=== PATIENT | female | born 1960 | race Caucasian/White ===

== ENCOUNTER → 2019-09-08 11:01 | Outpatient (BNVA) | payer BC, SELFPAY | PROVIDERS: Family Provider Family Medicine; PCP Family Medicine; Visit Provider Orthopaedic Surgery | DX: M25.561 Pain in right knee (principal) | CPT/HCPCS: 73560; 73565 ==

== ENCOUNTER 2019-09-14 09:04 | Day surgery (SDC) | payer BC, SELFPAY ==
[2019-09-13 13:42] VITALS: BMI 39.4
[2019-09-14] VITALS (12 sets, daily range): BP systolic 128–160; BP diastolic 83–105; PULSE 57–74; RESP 12–22; TEMP 36.3–36.9; O2SAT 94–99
[2019-09-14] MEDS: sodium chloride 0.9% 1,000 ML 30 ML IV (09:47)
--- NOTE | 2019-09-14 09:54 | ANES.PREANE2 ---
Pre-Anesthetic Assessment Pre-Anesthetic Assessment: Height/Weight: Height 1.75 m Weight 121.109 kg Temp Pulse Resp Pulse Ox 97.4 F L 74 18 94 09/14/19 09:21 09/14/19 09:21 09/14/19 09:21 09/14/19 09:21 Preop Diagnosis: Right medial meniscal tear, osteoarthritis Proposed Procedure: Operation Date: 09/14/19 10:40 Proposed Procedures p Knee Arthroscopy medial meniscus repair vs meniscectomy 35442 [id number] S83.241A M17.11(Right) - Eddy Brambila MD Last intake: Intake Last Liquid Date 09/14/19 Last Liquid Time 00:00 Last Solid Date 09/14/19 Last Solid Time 00:00 Exam: Pre-Anes Outpt Exam: alert, oriented x 3, clear to auscultation bilaterally and regular rate & rhythm Airway: Submandibular: WNL Cervical ROM: WNL MP: 1 Dentition: Caps Metabolic: Metabolic: Morbid obesity Musc/skel: Musc/skel: Lower Back Pain Comments: intermittent right radiculopathy Anesthetic Plan: ASA status: II Anesthesia: General Meds/Allergies Current Medications: Current Medications Generic Name Dose Route Start Last Admin Trade Name Freq PRN Reason Stop Dose Admin Sodium Chloride 1,000 mls @ 30 ml s/hr 09/14/19 08:45 09/14/19 09:47 Sodium Chloride 0.9% IV 09/15/19 08:44 30 mls/hr .Q24H LINDA Administration PFSH Anesthesia PFSH: Social History Smoking and tobacco status: never smoked Alcohol intake: never Data Anesthesia Cardiac Studies: No Data to Display
--- NOTE | 2019-09-14 11:45 | PM.HPUD ---
H&P update H&P Update: DATE OF SURGERY/PROCEDURE: 09/14/19 DATE H&P PERFORMED: 09/08/19 H&P UPDATE INFORMATION: H&P completed within last 30 days and No changes to prior documentation PREOP DIAGNOSIS: Right medial meniscal tear, osteoarthritis PRIMARY INDICATION FOR PROCEDURE: Right medial meniscal tear PLANNED PROCEDURE: Operation Date: 09/14/19 10:40 Proposed Procedures p Knee Arthroscopy medial meniscus repair vs meniscectomy 57066 [id number] [id number] S83.241A M17.11(Right) - Eddy Brambila MD Full H&P Medications/Allergies: Current Medications: Current Medications Generic Name Dose Route Start Last Admin Trade Name Freq PRN Reason Stop Dose Admin Sodium Chloride 1,000 mls @ 30 ml s/hr 09/14/19 08:45 09/14/19 09:47 Sodium Chloride 0.9% IV 09/15/19 08:44 30 mls/hr .Q24H LINDA Administration Perinent History: Social History: Social History Smoking and tobacco status: never smoked Alcohol intake: never
[2019-09-14] MEDS: morphine 4 mg/mL SDV 1 mL 8 MG IM (12:15)
--- NOTE | 2019-09-14 13:38 | PM.OP ---
Operative Report Date of procedure: September 14, 2019 Pre-op Diagnosis: Right medial meniscal tear, osteoarthritis Post-op Diagnosis: Oblique tear right medial meniscus, chondromalacia right patella, chondromalacia medial femoral condyle Post-op Findings: The patient had oblique tear of his posterior third of his medial meniscus involving approximately the central 60% the tear was relatively dysvascular. Tissue quality did not allow for a satisfactory repair. She had generalized thinning of the cartilage beneath the patella and thinning and fissures centrally over the medial femoral condyle which were thought to extend through less than 50% of the thickness of the cartilage Procedure Done: Partial right medial Pathology: none sent Surgeon: Eddy Brambila Anesthesia: General Estimated blood loss (mL): 20 Complications: None Findings: Patient had an oblique tear in the posterior third of the medial meniscus involving approximately the central 60%. The tear was relatively dysvascular. Efforts at repair revealed fairly poor quality to the flap and meniscectomy was chosen as a better option Condition: stable Disposition: PACU Procedure: The patient was taken to the operating room and given 2 g of Ancef. She was given a general anesthesia. Her knee was infiltrated with 30 cc of 0.5% Marcaine with epinephrine and 10 mg of morphine. The leg was prepped and draped in the usual fashion and a timeout performed. The knee was initially entered through an anterior medial and anterior lateral portal. The medial meniscus oblique tear was carefully probed. Exposure in the far posterior medial corner is difficult. A spinal gauge was introduced medially and the meniscal femoral portion the medial Collateral ligament I trephinated with multiple puncture wounds allowing an additional few millimeters of exposure. A more lower medial portal was then made a scalpel blade to allow access to the posterior medial meniscus. The central areas were debrided and debridement was extended through the tear. Initially the tear was fairly large and tissue quality seemed reasonable to attempt repair. Multiple attempts were made with a palomino stitch to reapproximate the flap with poor quality tissue limiting the quality of the repair. Elzbieta stitch tissue was removed. An incisor shaver was introduced and the unstable flap was a debrided back leaving approximately 30% of the remaining posterior medial meniscus. The rim was cleaned up with a Santamaria [employer] Nephew Werewolf probe leaving a rim of approximately 30% of the meniscus behind. Areas and flaps and fissures over the medial femoral condyle were lightly debrided back with incisor shaver and Santamaria [employer] Nephew Werewolf probe under a low cautery mode. The lateral compartment was inspected and found to be healthy. There patellar cartilage within but no particular unstable flaps of fissures were seen that were benefit from debridement. The knee was irrigated with saline. Portals were closed with 3-0 Prolene. Sterile dressings were applied. The patient was extubated taken recovery room in stable condition.
--- NOTE | 2019-09-14 13:44 | SUR.PHASEI ---
1338- RECEIVED PATIENT IN PACU FROM OR VIA [facility]. RESP ARE EVEN AND NONLABORED. SIMPLE MASK APPLIED AT 6LPM, SAT 97%. SHE IS AWAKE AND ALERT, DROWSY. RLE IS WARM TO TOUCH WITH PPP. DRESSING DRY AND INTACT. NO S/S PAIN OR NAUSEA
[2019-09-14] MEDS: fentaNYL 50 mcg/mL INJ 2mL IVP ×2 (13:46→13:51)
[2019-09-14] MEDS: HYDROcodone-acetaminophen 5-325 mg Tablet 1 TAB PO (14:30)
== END 2019-09-14 15:12 | disposition home or self-care (01) ==
PROVIDERS: Family Provider Family Medicine; PCP Family Medicine; Visit Provider Orthopaedic Surgery
PROC: (CPT 29870; principal; 2019-09-14 10:40)
DX: S83.241A Other tear of medial meniscus, current injury, right knee, initial encounter (principal); X58.XXXA Exposure to other specified factors, initial encounter; M17.11 Unilateral primary osteoarthritis, right knee; M22.41 Chondromalacia patellae, right knee
CPT/HCPCS: 29881; 12345; J0690; J1100; J1885; J2001; J2270; J2405; J2704; J3010; J3490; J7030

== ENCOUNTER 2019-09-26 08:14 | Outpatient (CLI) | payer BC, SELFPAY ==
--- NOTE | 2019-09-26 08:21 | CT_ITS ---
WS: [id number] CT CERVICAL MYELOGRAM HISTORY: CERVICAL DISC DISORDER W/MYELOPATHY OF MID CERVICAL REGION Technique: All CT scans at [facility] use at least one of these dose optimization techniq ues: automated exposure control; mA and/or kV adjustment per patient size (includes targeted exams wh ere dose is matched to clinical indication); or iterative reconstruction. DLP: 698.62 mGy.cm COMPARISON: MRI C-spine 03/25/2019 Good opacification of thecal sac with contrast. Posterior cervical alignment is normal. Mild disc space narrowing at C5-6 and C6-7. Small endplate os teophytes from C4 through C6. CSF surrounds the cord. No cord atrophy or enlargement. C1-C2: Normal. C2-C3: Normal. C3-C4: Mild annular disc bulging with a tiny central protrusion and osteophytic ridging. Very slight encroachment upon the ventral thecal sac with no significant stenosis. C4-C5: Mild osteophytic ridging and annular disc bulging. No stenosis. C5-C6: Mild osteophytic ridging with a shallow LEFT paracentral disc protrusion. Very mild narrowing of the LEFT foramen. C6-C7: Moderate-sized LEFT paracentral and proximal foraminal disc protrusion and osteophyte. Deformi ty and flattening of the LEFT lateral thecal sac with encroachment into the LEFT foramen. C7-T1: Small RIGHT facet osteophyte with mild encroachment upon the RIGHT lateral and posterior theca l sac. No cord contact. CT/CT cervical spine w con [id number] IMPRESSION: 1. Mild narrowing of the proximal LEFT foramen at C6-7 due to disc osteophyte protrusion. 2. Small LEFT paracentral disc protrusion at C5-6 with mild foraminal narrowin g. 3. No significant central stenosis.
--- NOTE | 2019-09-26 08:21 | IR_ITS ---
WS: [id number] CERVICAL AND LUMBAR MYELOGRAM HISTORY: LOW BACK PAIN/CERVICAL DISC DISORDER W/MYELOPATHY OF CSPINE COMPARISON: MRI cervical spine 03/25/2019 FLUOROSCOPY TIME: 2.1 minutes. Procedure, risks and complications were explained to the patient. Risks including bleeding, infection , headaches, allergic reaction and seizures. Consent has been obtained. With the patient in prone position the skin over the lumbar region is cleansed with ChloraPrep and an esthetized with lidocaine. 22-gauge spinal needle is inserted into the thecal sac at the appropriate level determined by fluoroscopy. Omnipaque 300; 13 ml is injected slowly under fluoroscopy with no co mplications. Needle bevel is perpendicular to the longitudinal fibers of the dura. Stylet is reinsert ed prior to removal of the needle. Patient tolerated the procedure well. Patient will proceed to CT f or further evaluation. Posterior lumbar alignment is normal. Mild disc space narrowing. No fractures. Uncomplicated injectio n into the thecal sac. Normal cervical alignment. With flexion and extension there is no instability. No significant foramin al narrowing. IR/IR myelogram spine cervic/lumb IMPRESSION: 1. Uncomplicated cervical and lumbar myelograms. 2. No instability involving the cervical or lumbar spine. 3. No fractures.
--- NOTE | 2019-09-26 08:21 | CT_ITS ---
WS: [id number] CT MYELOGRAM LUMBAR SPINE HISTORY: LOW BACK PAIN TECHNIQUE: Contiguous 2.5 mm axial imaging performed from T12 through the mid sacral level. Bone and soft tissue windows reviewed. Sagittal and coronal reformats are submitted and reviewed. DLP: 2424.[address] scans at [facility] use at least one of these dose optimization techniques: automat ed exposure control; mA and/or kV adjustment per patient size (includes targeted exams where dose is matched to clinical indication); or iterative reconstruction. COMPARISON: None available. Good injection of the thecal sac with contrast. Posterior lumbar alignment is normal. Disc spaces and vertebral body heights are preserved. L1-L2: No central or foraminal stenosis. Mild facet arthropathy. L2-L3: Mild annular disc bulging. No stenosis. L3-L4: Mild annular disc bulging with no significant stenosis. L4-L5: Mild annular disc bulging. Mild facet and ligamentum flavum arthropathy. No stenosis. L5-S1: Mild annular disc bulging with a broad-based central and LEFT paracentral disc herniation. Lance y slight contact on the thecal sac and LEFT S1 nerve root. No significant stenosis. Scattered calcified plaque within the aorta and common iliac arteries. No aneurysm. Visualized SI whitley nts demonstrate mild degenerative changes. CT/CT lumbar spine w con [id number] IMPRESSION: 1. Uncomplicated lumbar myelogram. 2. Broad-based disc herniation at L5-S1 with mild contact on the LEFT S1 nerve root.
[2019-09-26] MEDS: iohexol 300 mg/mL 50 mL Btl IV (10:51)
== END 2019-09-26 08:15 | disposition home or self-care (01) ==
LOC: RAD 08:17
PROVIDERS: Family Provider Family Medicine; PCP Family Medicine; Visit Provider Specialist
DX: M50.020 Cervical disc disorder with myelopathy, mid-cervical region, unspecified level (principal); M51.27 Other intervertebral disc displacement, lumbosacral region; M50.222 Other cervical disc displacement at C5-C6 level
CPT/HCPCS: 36415; 62305; 72040; 72120; 72126; 72132; 85610

== ENCOUNTER 2020-04-14 12:03 | Emergency (ER) | payer BC, SELFPAY ==
--- NOTE | 2020-04-14 12:36 | ED_ITS ---
HPI - URI/Sore Throat General: Chief Complaint: Shortness of Breath/Dyspnea Stated Complaint: covid positive Time Seen by Provider: 04/14/20 12:06 Source: patient Mode of arrival: ambulatory Limitations: no limitations History of Present Illness: HPI Narrative: Patient is a 59-year-old female who presents to ED today along with her and several other family members all here for COVID evaluations. Patient tells me last week she had exposure to a COVID positive individual while in [place]. She states based on that exposure she decided to go ahead and get herself tested-reports testing came back positive. She states her at the time was also getting testing due to symptoms of shortness of breath. She states her 's test came back negative. She is convinced that the facility got our tests mixed up . Patient states since then she has developed some maxillary sinus pressure and a sore throat. She denies fevers, cough, shortness of breath, difficulty breathing or any other symptoms at this time. MD elicited complaint: sore throat, rhinorrhea, nasal congestion and sinus pain Severity: mild Description of mucous: clear Able to tolerate fluids by mouth: Yes Exacerbating factors: nothing Relieving factors: nothing Context: sick contacts Associated symptoms: Reports nasal congestion and sinus pain; Deny abdominal pain, chills, chest pain, diarrhea, ear or mastoid pain, fever(s), headache(s), nausea or vomiting Review of Systems Const: Denies: fever(s), chills, body aches, fatigue or malaise Eyes: Denies: change in vision, blurry vision, photophobia, floaters or seeing flashes ENMT: Reports: throat pain, odynophagia, nasal discharge, nasal congestion and sinus pain; Denies: enlarged tonsils, ear or mastoid pain, ear discharge, change in hearing or tinnitus Card: Denies: chest pain, palpitations, irregular heart rhythm, edema, swelling of feet/ankles, lightheadedness, syncope, pre-syncope, dyspnea on exertion, orthopnea or leg pain with exertion Resp: Denies: dyspnea, productive cough, non-productive cough, pain on inspiration, change in phlegm color or chest congestion GI: Denies: abdominal pain, nausea, vomiting or diarrhea Musc: Denies: neck pain, back pain, extremity pain, extremity swelling, joint pain or joint swelling Skin/Breast: Denies: rash Neuro: Denies: headache(s), numbness in extremities, weakness in extremities, sensory changes or dizziness PFSH ED PFSH: Social History Smoking and tobacco status: never smoked Alcohol intake: never Physical Exam Const: COMMON NORMALS: no acute distress, average body habitus, patient oriented x3, no limitations, healthy appearing, alert and well nourished ORIENTATION/CONSCIOUSNESS: Yes oriented to person, Yes oriented to place and Yes oriented to time HENMT: COMMON NORMALS: normocephalic, atraumatic, hearing grossly normal bilaterally, external ears normal, EAC's normal, TM's normal bilaterally, Normal external nose present, moist oral mucous membranes, oropharynx normal, dentition normal and gingiva normal HEAD & SCALP: normal to inspection, normocephalic and atraumatic FACE & SINUS: sinus tenderness maxillary NOSE: Normal external nose present EXTERNAL EAR: Yes external ears normal EXTERNAL AUDITORY CANAL: EAC's normal TYMPANIC MEMBRANE: TM's normal bilaterally MOUTH: Normal oral and palatal mucosa present THROAT: posterior oropharynx normal, tonsils normal and uvula midline Eye: GENERAL EYE: appearance normal, both eyes and all related structures Neck/C-Spine: COMMON NORMALS: full ROM, no lymphadenopathy and no meningeal signs Resp: COMMON NORMALS: normal respiratory effort and clear to auscultation bilaterally AUSCULTATION: clear to auscultation bilaterally Cardio: COMMON NORMALS: regular rate and regular rhythm RATE: regular rate RHYTHM: regular rhythm Extremity: GENERAL: Yes normal exam except as noted Neuro: COMMON NORMALS: patient oriented x3 SENSORIUM/ORIENTATION: Yes alert, Yes oriented to person, Yes oriented to place and Yes oriented to time MENINGEAL SIGNS: Yes no meningeal signs Skin: COMMON NORMALS: no rashes or lesions noted GENERAL SKIN EXAM: no rashes or lesions noted Course Vital Signs: Vital signs: Vital Signs Pulse Rate 77 04/14/20 12:40 Respiratory Rate 18 04/14/20 12:40 Blood Pressure 134/86 04/14/20 12:40 Pulse Oximetry 97 04/14/20 12:40 MDM - URI/Sore Throat MDM Narrative: Medical decision making narrative: Patient is requesting repeat COVID testing. Ultimately I explained to patient how this overall would be non- beneficial for her as it would not overall change my recommendations. She is already had a positive COVID test and based on the symptoms of her I would recommend quarantining regardless. She is adamant that we retest her therefore this was ordered. She is requesting shot of steroids as she feels this will help her symptoms. Discussed CDC guidelines for treatment of COVID. Again she is adamant that we try the steroids. Ultimately I do not feel this would harm patient in any way therefore she was given IM dexamethasone. There is absolutely no need for emergent imaging or labs on today's visit. She is clinically stable. Her vital signs are normal. Discharge Plan Discharge Patient Disposition: Home Clinical Impression: COVID-19 Condition: Stable Prescriptions: No Action multivitamin Capsule 1 cap PO QAM RF: 0 Discharge Orders: Discharge Order (Routine); Ordered 04/14/20 Ordered By: Ángela Mayer Referrals: Conor Rae MD [Primary Care Provider] - Activity Restrictions/Additional Instructions: As discussed please continue to quarantine over the next 10 days. You may return to the emergency department for severe shortness of breath or severe difficulty breathing. Coding Level of Care Code ED Finger Buff Sewer for Twan Mcpherson
[2020-04-14 12:40] VITALS: BP 134/86; PULSE 77; RESP 18; O2SAT 97; BMI 39.4
[2020-04-14] MEDS: dexamethasone 10 mg/mL INJ 8 MG IM (13:26)
[2020-04-14 13:49] VITALS: BP 159/110; PULSE 69; RESP 18; O2SAT 97
--- NOTE | 2020-04-14 13:50 | PC.NURSE ---
Patient refused for nurse to perform COVID 19 swab properly, swab not sent for testing
== END 2020-04-14 13:51 | disposition home or self-care (01) ==
PROVIDERS: Emergency Provider Physician Assistant; PCP Family Medicine
DX: U07.1 COVID-19 (principal)
CPT/HCPCS: 12345; 96372; 99281; 99283; J1100

== ENCOUNTER 2020-05-02 01:33 | Emergency (ER) | payer BC, SELFPAY ==
[2020-05-02 01:56] VITALS: RESP 18; TEMP 36.6; BMI 38.4
--- NOTE | 2020-05-02 01:59 | XRR_ITS ---
PROCEDURE INFORMATION: Exam: XR Chest, 1 View Exam date and time: 05/02/2020 2:26 AM Age: 59 years old Clinical indication: Cough TECHNIQUE: Imaging protocol: XR of the chest Views: 1 view. COMPARISON: CR Chest 1 [place] [id number] 08/09/2018 1:30 AM FINDINGS: Lungs: The right lung is clear. Mild atelectasis at the left lung base, similar to prior study. Pulmonary vasculature within normal limits. Pleural space: No visible pneumothorax or pleural effusion. Heart/Mediastinum: Heart size within normal limits. Thoracic aorta is tortuous, similar to prior study. Bones/joints: No emergent findings identified. XR/XR chest 1V portable [id number] IMPRESSION: 1. No radiographic findings of acute cardiopulmonary disease.
--- NOTE | 2020-05-02 02:00 | W.ED.URI ---
HPI - URI/Sore Throat General: Chief Complaint: Upper Respiratory Infection Stated Complaint: persistent sore throat Time Seen by Provider: 05/02/20 01:48 History of Present Illness: HPI Narrative: Patient is a 59-year-old female comes to the ED with persistent cough. Patient was diagnosed with COVID-19 on April 10 and has done her 14 days of quarantine. Patient says she still has cough, nasal congestion drainage, sore throat. Reductive and phlegm is described as yellow and clear. She says she uses an albuterol inhaler at home to help with any shortness of breath or wheezing. She denies having any fevers over the past 2 weeks plus. She currently is taking doxycycline and has a couple doses left. Associated symptoms: Reports nasal congestion; Deny abdominal pain, chills, chest pain, diarrhea, fever(s), headache(s), nausea or vomiting Review of Systems Const: Denies: fever(s), chills or fatigue Eyes: Denies: change in vision or eye discomfort ENMT: Reports: throat pain, nasal discharge and nasal congestion; Denies: odynophagia Card: Denies: chest pain, palpitations, edema, swelling of feet/ankles, dyspnea on exertion or orthopnea Resp: Reports: productive cough (Yellow and clear) and wheezing; Denies: dyspnea or non-productive cough GI: Denies: abdominal pain, nausea, vomiting, diarrhea, constipation or hematochezia : Denies: flank pain, dysuria or hematuria Musc: Denies: neck pain, back pain or extremity swelling Skin/Breast: Denies: rash or new lesions Neuro: Denies: headache(s), numbness in extremities or weakness in extremities PFS ED PFSH: Social History Smoking and tobacco status: never smoked Alcohol intake: never Physical Exam Const: COMMON NORMALS: no acute distress, patient oriented x3, healthy appearing and alert GENERAL APPEARANCE: cooperative and comfortable HENMT: COMMON NORMALS: normocephalic HEAD & SCALP: normocephalic MOUTH: Normal oral and palatal mucosa present THROAT: posterior oropharynx normal and uvula midline Eye: COMMON NORMALS: Equal, round and reactive pupils present PUPIL: Yes Equal, round and reactive pupils present Neck/C-Spine: COMMON NORMALS: supple GENERAL: Yes normal visual inspection Resp: COMMON NORMALS: normal respiratory effort, No retractions, No use of accessory muscles and clear to auscultation bilaterally EFFORT & INSPECTION: Yes able to speak in complete sentences, No tachypneic, No respiratory distress and Yes Actively coughing AUSCULTATION: clear to auscultation bilaterally and wheezes expiratory wheezes (mild expiratory wheeze) Cardio: COMMON NORMALS: regular rate, regular rhythm, S1 normal heart sound present, S2 normal heart sound present, No gallops present (Cardio), No clicks present (Cardio), No murmurs present (Cardio) and Peripheral pulses 2+ throughout RATE: regular rate RHYTHM: regular rhythm HEART SOUNDS: S1 normal heart sound present and S2 normal heart sound present PERIPHERAL PULSES: Peripheral pulses 2+ throughout GI: COMMON NORMALS: Normal to inspection, nondistended, normoactive bowel sounds present, Soft to palpation, non-tender and no masses PALPATION: Yes Soft to palpation : COMMON NORMALS: Yes no CVA tenderness BLADDER/KIDNEY EXAM: Yes no CVA tenderness Back/Pelvis: COMMON NORMALS: no CVA tenderness Extremity: COMMON NORMALS: normal to inspection Neuro: COMMON NORMALS: patient oriented x3 and moves all extremities SENSORIUM/ORIENTATION: Yes alert Skin: COMMON NORMALS: no rashes or lesions noted GENERAL SKIN EXAM: no rashes or lesions noted and dry skin Course Vital Signs: Vital signs: Vital Signs Temperature 97.8 F 05/02/20 01:56 Pulse Rate 86 05/02/20 02:21 Respiratory Rate 18 05/02/20 02:21 Blood Pressure 163/98 05/02/20 02:21 Pulse Oximetry 98 05/02/20 02:21 MDM - URI/Sore Throat MDM Narrative: Medical decision making narrative: Patient is a 59-year-old female who comes to the ED with persistent cough. She was diagnosed with COVID-19 on April 10. She appears healthy and does have some active coughing during exam. She has some mild expiratory wheezing in lungs but in no acute distress. Chest x-ray showed no acute infiltrates. Due to patient's persistent cough and other upper respiratory symptoms I decided to put her on a prescription for azithromycin and prednisone. Told patient to continue using albuterol inhaler at home to help with any wheezing. Return to ED precautions given. Follow-up with PCP in 7 to 10 days for reevaluation. Patient understood and agreed with plan. Imaging Data^: CXR: Attestation: I personally reviewed and interpreted this imaging study as follows: My impression: Chest x-ray showed no acute infiltrates or findings. Possible bronchitis seen. Pending final radiology report. Discharge Plan Discharge Patient Disposition: Home Clinical Impression: Upper respiratory infection with cough and congestion Condition: Stable Prescriptions: New azithromycin 250 mg tablet 250 mg PO DAILY 4 Days Qty: 4 RF: 0 prednisone 20 mg tablet 20 mg PO TID 5 Days Qty: 15 RF: 0 No Action multivitamin Capsule 1 cap PO QAM RF: 0 Discharge Orders: Discharge Order (Routine); Ordered 05/02/20 Ordered By: Ck Pearson Referrals: Conor Rae MD [Primary Care Provider] - Discharge Diet: Regular Discharge Activity: Increase activity as tolerated Patient Instructions: Upper Respiratory Infection - Adult Activity Restrictions/Additional Instructions: Follow-up with medical provider as directed in 7-10 days. Take medications as prescribed. Continue using at previously prescribed albuterol inhaler as needed for any shortness of breath or wheezing. Return to the ER or your medical provider if condition worsens. Please read and understand discharge instructions. If any questions, please ask. Discharge Date/Time: 05/02/20 02:53 Coding Level of Care Code ED Security Researcher for Twan Mcpherson Exam Comprehensive
[2020-05-02 02:21] VITALS: BP 163/98; PULSE 86; RESP 18; O2SAT 98
[2020-05-02] MEDS: predniSONE 20 mg Tablet 60 MG PO (02:33)
[2020-05-02] MEDS: azithromycin 250 mg Tablet 500 MG PO (02:33)
== END 2020-05-02 02:53 | disposition home or self-care (01) ==
PROVIDERS: Emergency Provider Physician Assistant; PCP Family Medicine
DX: U07.1 COVID-19 (principal)
CPT/HCPCS: 12345; 71045; 99281; 99283; J7512; Q0144

== ENCOUNTER → 2020-05-08 14:05 | Outpatient (BNVA) | payer BC, SELFPAY | PROVIDERS: PCP Family Medicine; Visit Provider Licensed Practical Nurse | DX: M50.020 Cervical disc disorder with myelopathy, mid-cervical region, unspecified level (principal); M51.17 Intervertebral disc disorders with radiculopathy, lumbosacral region | CPT/HCPCS: 99213 ==

== ENCOUNTER 2020-05-22 13:20 | Outpatient (CLI) | payer BC, SELFPAY ==
--- NOTE | 2020-05-22 13:00 | MR_ITS ---
WS: [id number] MRI CERVICAL SPINE NONCONTRAST TECHNIQUE: Sagittal T1, T2 and STIR imaging. Axial T2, gradient, and fiesta imaging. CLINICAL INFORMATION: M50.020 Cervical disc disorder with myelopathy, mid-cervi... COMPARISON: None. FINDINGS: Normal cervical alignment. No high-grade central canal stenosis. Mild disc bulging more prominent at C5-C6. C2-C3: Mild left bony foraminal narrowing. Spinal canal and right foramen are patent. Mild left facet arthropathy. C3-C4: Mild left and no significant right foraminal narrowing. Spinal canal is patent. Mild facet art hropathy. C4-C5: Mild osteophytic ridging. Mild left greater than right bony foraminal narrowing. Mild facet ar thropathy. Spinal canal is patent. C5-C6: Disc osteophyte complex eccentric to the left with moderate left foraminal narrowing. Right fo ramen is patent. Mild central canal stenosis. C6-C7: Disc osteophyte complex with endplate ridging. Moderate left and no significant right foramina l narrowing. Mild facet arthropathy. C7-T1: Mild left greater than right bony foraminal narrowing. Osteophytic ridging. Spinal canal is p atent. Visualized brain stem structures: Normal. Prevertebral soft tissues: Normal. MR/MR cervical spin wo con* [id number] IMPRESSION: 1. Straightening of the normal cervical lordosis. Cord signal is normal. 2. Shallow disc osteophyte protrusions C5-C6 and C6-C7 with mild central canal stenosis and slight effacement of ventral thecal sac. 3. Mild to moderate bony foraminal narrowing worse at left C3-C4, left C4-C5, left C5-C6 and left C6-C7.
--- NOTE | 2020-05-22 13:29 | XR_ITS ---
WS: [id number] CERVICAL SPINE FLEXION EXTENSION TECHNIQUE: 3 views of the cervical spine: lateral neutral, flexion and extension views. CLINICAL INFORMATION: CERVICAL DISORDER WITH MYELOPATHY COMPARISON: None. FINDINGS: Straightening of the normal cervical lordosis. Normal alignment on the neutral view. Mild spondylitic changes. Normal C1-C2 articulation. No instability on flexion-extension. Normal prevertebral soft ti ssues. Posterior elements are normal. No other significant findings. XR/XR cervical spine fl/ex [id number] IMPRESSION: No instability on flexion-extension.
== END 2020-05-22 13:21 | disposition home or self-care (01) ==
LOC: RADWPI 13:22
PROVIDERS: PCP Family Medicine; Visit Provider Licensed Practical Nurse
DX: M50.020 Cervical disc disorder with myelopathy, mid-cervical region, unspecified level (principal); M25.78 Osteophyte, vertebrae; M48.02 Spinal stenosis, cervical region
CPT/HCPCS: 72040; 72141

== ENCOUNTER → 2020-07-02 09:08 | Outpatient (BNVA) | payer BC, SELFPAY | PROVIDERS: PCP Family Medicine Adult Medicine; Referring Provider Licensed Practical Nurse; Visit Provider Specialist | DX: M50.020 Cervical disc disorder with myelopathy, mid-cervical region, unspecified level (principal); G56.02 Carpal tunnel syndrome, left upper limb | CPT/HCPCS: 95910; 99202 ==

== ENCOUNTER → 2020-11-15 08:32 | Outpatient (BNVA) | payer BC, OTHER, SELFPAY | PROVIDERS: PCP Family Medicine Adult Medicine; Visit Provider Family Medicine Adult Medicine | DX: R03.0 Elevated blood-pressure reading, without diagnosis of hypertension (principal); E66.9 Obesity, unspecified; G54.0 Brachial plexus disorders | CPT/HCPCS: 80053; 80061; 83036; 84443; 85025 ==

== ENCOUNTER 2021-03-06 08:00 | Outpatient (CLI) | payer OTHER, SELFPAY ==
--- NOTE | 2021-03-06 08:00 | US_ITS ---
WS: [id number] ULTRASOUND ABDOMEN LIMITED CLINICAL INFORMATION: left lower abdomen soft tissue, non-reducing 5 cm mass COMPARISON: None. FINDINGS: Ultrasound left lower quadrant area of concern with and without Valsalva. Suspected ventral abdominal wall hernia in this area with hernia neck measuring 1.0 x 1.2 CM. Herniated structure likely omental measuring 5.4 x 2.5 x 5.7 CCM. No peristalsis. US/US abdomen limited [id number] IMPRESSION: Left lower quadrant ventral abdominal hernia with hernia neck measuring 1.0 x 1 .2 CM. Suspected herniated omental fat. No herniated bowel. This can be further evaluated with CT abdomen pelvis.
== END 2021-03-06 08:01 | disposition home or self-care (01) ==
PROVIDERS: PCP Family Medicine Adult Medicine; Visit Provider Family Medicine Adult Medicine
DX: R19.00 Intra-abdominal and pelvic swelling, mass and lump, unspecified site (principal); K43.9 Ventral hernia without obstruction or gangrene
CPT/HCPCS: 76705

== ENCOUNTER → 2021-05-02 08:31 | Outpatient (BNVA) | payer OTHER, SELFPAY | PROVIDERS: PCP Family Medicine Adult Medicine; Visit Provider Family Medicine Adult Medicine | DX: Z13.220 Encounter for screening for lipoid disorders (principal); Z13.6 Encounter for screening for cardiovascular disorders; E66.9 Obesity, unspecified | CPT/HCPCS: 80053; 80061; 83036; 85025 ==

== ENCOUNTER 2021-06-03 23:09 | Emergency (ER) | payer OTHER, SELFPAY ==
[2021-06-03 23:15] VITALS: BP 168/106; PULSE 77; RESP 18; TEMP 36.1; O2SAT 95; BMI 38.9
--- NOTE | 2021-06-03 23:32 | CTR_ITS ---
PROCEDURE INFORMATION: Exam: CT Abdomen And Pelvis With Contrast Exam date and time: 06/03/2021 11:32 PM Age: 60 years old Clinical indication: Abdominal pain; Generalized; Additional info: Abd pain TECHNIQUE: Imaging protocol: Computed tomography of the abdomen and pelvis with contrast. Radiation optimization: All CT scans at this facility use at least one of these dose optimization techniques: automated exposure control; mA and/or kV adjustment per patient size (includes targeted exams where dose is matched to clinical indication); or iterative reconstruction. Contrast material: OMNI 300; Contrast volume: 95 ml; Contrast route: INTRAVENOUS (IV); COMPARISON: US abdomen limited [id number] 03/06/2021 8:28 AM RADIATION DOSE METRICS: Total DLP (mGy-cm): 1857.51 FINDINGS: Diaphragm: There is a small hiatal hernia. Liver: There is a tiny hypodensity in the inferior tip the right lobe of the liver, probably a small cyst too small to definitively characterize on CT scanning. Liver is otherwise unremarkable. Gallbladder and bile ducts: The gallbladder is normal. Pancreas: The pancreas is normal. Spleen: The spleen is normal. Adrenal glands: The adrenal glands are normal. Kidneys and ureters: The kidneys are normal. There is no evidence of hydronephrosis. There is no evidence of renal or ureteral calcifications. Stomach and bowel: There is no evidence of colitis/diverticulitis. There is moderate fluid distention of the stomach of uncertain significance. There is mild fluid distention of ileal loops. The terminal ileum is nondilated. A definite point of transition is not identified but this could represent mild distal bowel obstruction versus nonspecific enteritis. Correlation with clinical findings is suggested. Appendix: A normal appendix is identified. Intraperitoneal space: There is no evidence of free intraperitoneal fluid. Vasculature: The aorta demonstrates moderate atherosclerotic calcification. There is no evidence of an abdominal aortic aneurysm. Lymph nodes: There is no evidence of lymphadenopathy. Urinary bladder: Unremarkable as visualized. Reproductive: Unremarkable as visualized. Bones/joints: Unremarkable. No acute fracture. Soft tissues: There is a small hypogastric ventral hernia to the right of the midline containing only fat. There is a larger hypogastric ventral hernia to the left of the midline containing only fat. This corresponds with the hernia demonstrated on 03/06/2021 ultrasound. There is diastasis of the rectus abdominal muscles with some omental fat extending between the muscles into the space deep to the fascia. CT/CT abdomen pelvis w con* [id number] IMPRESSION: 1. Ventral hernias as described. 2. Possible partial distal small bowel obstruction versus nonspecific enteritis. Radiation Dose CTDIVOL = (mGy): DLP = 1857.51 (mGy-cm)
--- NOTE | 2021-06-03 23:32 | ED_ITS ---
HPI - Abdominal Pain General: Chief Complaint: Abdominal Pain Stated Complaint: ABD Pain Time Seen by Provider: 06/03/21 23:13 Source: patient Mode of arrival: ambulatory Limitations: no limitations History of Present Illness: HPI narrative: 60-year-old female states she has been having abdominal pain since Thursday. States her pain is been epigastric and right upper quadrant sharp in nature. States it waxes and wanes and seems to be worse with eating. States pain is currently a 5 out of 10. She has not had any vomiting she has been having normal bowel movements. She denies any fevers. Denies any history of having any pains like this in the past. Associated Symptoms: Denies chills, dysuria and fever(s) Review of Systems Const: Denies: fever(s), chills, body aches or change in appetite Eyes: Denies: blurry vision or eye discomfort ENMT: Denies: throat pain or dental pain Card: Denies: chest pain Resp: Denies: dyspnea GI: Reports: abdominal pain : Denies: dysuria Musc: Denies: neck pain or back pain Skin/Breast: Denies: rash Neuro: Denies: headache(s) Psych: Denies: depression Gabriel/Lymph: Denies: easy bruising All/Imm: Denies: urticaria PFSH ED PFSH: Medical History Cervical disc disorder with myelopathy of mid-cervical region Dyslipidemia (high LDL; low HDL) Intervertebral disc disorder with radiculopathy of lumbosacral region Surgical History Airway compromise 2009 Dr. [place] [employer] airway enlargement History of carpal tunnel surgery of right wrist 1993 Internal impingement of right shoulder 2003 [place], [place] Tear of medial meniscus of right knee 09/14/2019 Right medial meniscectomy Family History Mother Lymphoid leukemia Diabetes Hypertension Father , Age 73 CAD (coronary artery disease) Myocardial infarction Stroke Hypertension Sister Hypertension Brother Hypertension Social History Smoking and tobacco status: never smoked Alcohol intake: never Household members: spouse Marital status: Current occupational status: employed Current occupation: Caregiver History of recent travel: No Physical Exam Const: COMMON NORMALS: no acute distress, patient oriented x3 and healthy appearing HENMT: COMMON NORMALS: normocephalic and atraumatic HEAD & SCALP: normocephalic and atraumatic Eye: COMMON NORMALS: Equal, round and reactive pupils present and EOMs intact bilaterally PUPIL: Yes Equal, round and reactive pupils present Neck/C-Spine: COMMON NORMALS: full ROM and supple Chest: COMMONS NORMALS: normal inspection of the chest and normal palpation of entire chest wall Resp: COMMON NORMALS: normal respiratory effort, No retractions, No use of accessory muscles and clear to auscultation bilaterally AUSCULTATION: clear to auscultation bilaterally Cardio: COMMON NORMALS: regular rate, regular rhythm and No murmurs present (Cardio) RATE: regular rate RHYTHM: regular rhythm GI: COMMON NORMALS: Soft to palpation and no masses PALPATION: Yes Soft to palpation OTHER: diffuse tenderness Extremity: COMMON NORMALS: normal to inspection and full ROM Neuro: COMMON NORMALS: patient oriented x3, moves all extremities and no focal motor deficits Psych: COMMON NORMALS: mental status grossly normal, Normal thought process present and cooperative THOUGHT PROCESS: Normal thought process present Skin: COMMON NORMALS: no rashes or lesions noted and no wounds GENERAL SKIN EXAM: no rashes or lesions noted Course Vital Signs: Vital signs: Vital Signs Temperature 97.0 F L 06/03/21 23:15 Pulse Rate 63 06/04/21 01:20 Respiratory Rate 16 06/04/21 01:20 Blood Pressure 150/97 06/04/21 01:20 Pulse Oximetry 96 06/04/21 01:20 MDM - Abdominal Pain MDM Narrative: Medical decision making narrative: Patient presents with abdominal pain is resolved at discharge exam here is benign. CT showed enteritis versus a possible small bowel obstruction. She has no physical findings of small bowel obstruction here. She has had no vomiting she is having normal bowel movements has normal bowel sounds. I will get her follow-up with surgery she is to a either liquid diet over the next 2 days. I informed her if she has any worsening pain or vomiting she is return immediately. She understands agrees to plan. Lab Data: Labs: Lab Results 06/03/21 06/03/21 06/04/21 23:43 23:43 00:16 WBC 11.0 10^3/uL H 10 ^3/uL (4.0-10.0) RBC 4.89 10^6/uL 10^6 /uL (4.1-5.3) Hgb 15.0 g/dL g/dL (11.5-15.3) Hct 43.0 % % (37.0-47.0) MCV 87.9 fl fl (81-99) MCH 30.7 pg pg (28.0-34.0) MCHC 34.9 g/dL g/dL (30.0-36.0) RDW 13.3 % % (12.1-15.1) Plt Count 262 10^3/cmm 10^3 /cmm (130-400) MPV 9.9 fL fL (7.4-10.4) Neut % (Auto) 64.4 % % Lymph % (Auto) 26.8 % % [place] % (Auto) 6.8 % % Eos % (Auto) 1.4 % % Baso % (Auto) 0.4 % % Neut # (Auto) 7.09 10^3/uL 10^3 /uL (1.8-7.7) Lymph # (Auto) 3.0 10^3/uL 10^3/ uL (0.8-4.8) [place] # (Auto) 0.8 10^3/uL 10^3/ uL (0.2-0.9) Eos # (Auto) 0.2 10^3/uL 10^3/ uL (0.0-0.8) Baso # (Auto) 0.0 10^3/uL 10^3/ uL (0.0-0.1) Nucleated RBC % (a uto) 0 % % Nucleated RBCs # 0.0 /100WBC /100W BC Sodium 141 mmol/L mmol/L (136-145) Potassium 3.9 mmol/L mmol/L (3.5-5.1) Chloride 102 mmol/L mmol/L (98-107) Carbon Dioxide 26 mmol/L mmol/L (22-29) Anion Gap 16.9 (5-19) BUN 14 mg/dL mg/dL (8-23) Creatinine 0.8 mg/dL mg/dL (0.5-0.9) GFR Calculation 72.7 mL/min L mL/ min (90-130) Glucose 111 mg/dL mg/dL (65-115) Calculated Osmolal ity 293 mOsm/kg mOsm/ kg (285-295) Calcium 10.0 mg/dL mg/dL (8.5-10.5) Total Bilirubin 0.3 mg/dL mg/dL (0.15-1.2) AST 17 U/L U/L (0-32) ALT 16 U/L U/L (0-33) Alkaline Phosphata se 83 IU/L IU/L (35-105) Total Protein 7.0 g/dL g/dL (6.6-8.7) Albumin 4.3 g/dL g/dL (3.5-5.2) Globulin 2.7 g/dL g/dL (1.3-4.6) Lipase 21 U/L U/L (13-60) Urine Color Yellow (Yellow) Urine Appearance Clear (CLEAR) Urine pH 5 (5-7) Ur Specific Gravit y 1.010 (1.005-1.030) Urine Protein Neg (Negative) Urine Glucose (UA) Norm (Normal) Urine Ketones Negative (Negative) Urine Blood Neg (Negative) Urine Nitrate Negative (Negative) Urine Bilirubin Neg (Negative) Urine Urobilinogen Norm mg/dL mg/dL (Negative) Ur Leukocyte Marivel ase Negative (Negative) EKG Data ^: EKG 1: Attestation: I personally reviewed and interpreted this EKG as follows: EKG interpretation date: 06/03/21 EKG interpretation time: 23:18 Interpretation: nsr hr [address] or t wave abnormalities qrs 84 qtc 402 Discharge Plan Discharge Patient Disposition: Home Clinical Impression: Abdominal pain Qualifiers: Abdominal location: generalized Qualified Code(s): R10.84 - Generalized abdominal pain Condition: Stable Prescriptions: New hydrocodone-acetaminophen 5-325 mg tablet 1 tab PO Q6H PRN (Reason: pain) Qty: 14 RF: 0 ondansetron 4 mg tablet,disintegrating 4 mg PO Q6H PRN (Reason: nausea and vomiting) Qty: 14 RF: 0 No Action multivitamin Capsule 1 cap PO QAM RF: 0 potassium chloride PO DAILY RF: 0 ascorbic acid (vitamin C) PO DAILY RF: 0 mecobalamin (vitamin B12) PO DAILY RF: 0 niacin 500 mg tablet extended release 24 hr 500 mg PO .hs Qty: 90 RF: 3 Fish, Flax andBorage Oil(Prim) 400-400-200 mg capsule 1 cap PO DAILY RF: 0 K2 Plus D3 1,000-100 unit-mcg tablet 1 tab PO DAILY RF: 0 acetaminophen 500 mg capsule 500 mg PO Q6H PRN (Reason: Pain) RF: 0 atorvastatin 40 mg tablet 40 mg PO DAILY 90 Days Qty: 90 RF: 0 Discharge Orders: Discharge ED (Routine); Ordered 06/04/21 Ordered By: Carmelita Green Referrals: Sung Lopez MD [Physician] - 1-3 days Wesley Abdul MD [Primary Care Provider] - Discharge Diet: Advance as tolerated Discharge Activity: Resume usual activity Patient Instructions: Abdominal Pain (ED), Opioid Safety Coding Level of Care Code ED Monogram Maker for Estephaniag Fwd Exam Comprehensive
[2021-06-03] MEDS: sodium chloride 0.9% 1,000 ML 999 ML IV (23:44)
[2021-06-03] MEDS: morphine 4 mg/mL SDV 1 mL IVP (23:44)
[2021-06-03] MEDS: ondansetron 2 mg/ML SDV 2 mL 4 MG IVP (23:44)
[2021-06-03 23:57] LABS: Basophils % 0.4 %; Eosinophils # 0.2 10^3/uL (0.0-0.8); Eosinophils % 1.4 %; Lymphocytes % 26.8 %; Mean Corpuscular HGB Conc 34.9 g/dL (30.0-36.0); Mean Corpuscular Hemoglobin 30.7 pg (28.0-34.0); Mean Corpuscular Volume 87.9 fl (81-99); Mean Platelet Volume 9.9 fL (7.4-10.4); Monocytes # 0.8 10^3/uL (0.2-0.9); Monocytes % 6.8 %; Neutrophils # 7.09 10^3/uL (1.8-7.7); Neutrophils % 64.4 %; Nucleated Red Blood Cells % 0 %; Platelet Count 262 10^3/cmm (130-400); Red Blood Count 4.89 10^6/uL (4.1-5.3); Red Cell Distribution Width 13.3 % (12.1-15.1)
[2021-06-04] MEDS: iohexol 300 mg/mL 100 mL Btl IV (00:03)
[2021-06-04 00:19] LABS: Alanine Aminotransferase 16 U/L (0-33); Albumin Level 4.3 g/dL (3.5-5.2); Alkaline Phosphatase 83 IU/L (35-105); Anion Gap 16.9 (5-19); Aspartate Amino Transferase 17 U/L (0-32); Blood Urea Nitrogen 14 mg/dL (8-23); Carbon Dioxide 26 mmol/L (22-29); Chloride 102 mmol/L (98-107); Globulin 2.7 g/dL (1.3-4.6); Glomerular Filtration Rate 72.7 mL/min (90-130); Glucose 111 mg/dL (65-115); Lipase 21 U/L (13-60); Osmolality Calculated 293 mOsm/kg (285-295); Potassium 3.9 mmol/L (3.5-5.1); Sodium 141 mmol/L (136-145); Total Bilirubin 0.3 mg/dL (0.15-1.2)
[2021-06-04 01:20] VITALS: BP 150/97; PULSE 63; RESP 16; O2SAT 96
[2021-06-04 01:34] LABS: Add Urine Microscopic? NO; Charge for UA Resulting for Rev
[2021-06-04 01:39] VITALS: BP 149/88; PULSE 61; RESP 14; TEMP 36.1; O2SAT 98
[2021-06-04 01:39] LABS: Bilirubin Urine Neg (Negative); Blood Urine Neg (Negative); Glucose Urine UA Norm (Normal); Ketones Urine Negative (Negative); Leukocyte Esterase Urine Negative (Negative); Nitrate Urine Negative (Negative); Protein Urine Neg (Negative); Urine Appearance Clear (CLEAR); Urine Color Yellow (Yellow); Urobilinogen Urine Norm (Negative); pH Urine 5 (5-7)
--- NOTE | 2021-06-04 09:29 | PC.SOCIAL ---
Addendum entered by Cleo Barron 06/13/21 14:20: Patient had an appointment scheduled with Dr. Lopez for 06.18.21 - patient did attend appointment. Original Note: Referral received by Dr Green for Dr Lopez for Abdominal pain. Called Dr Lopez office spoke with Ashley and arnaldo scheduled for 06/18/2021 9am. Arrive 15 min early and bring med list along with insurance cards. Notified patient and faxed information to Dr Lopez office.
== END 2021-06-04 01:41 | disposition home or self-care (01) ==
PROVIDERS: Emergency Provider Emergency Medicine; PCP Family Medicine Adult Medicine
DX: R10.84 Generalized abdominal pain (principal); E78.2 Mixed hyperlipidemia
CPT/HCPCS: 74177; 80053; 81003; 83690; 85025; 96361; 96374; 96375; 99283; J2270; J2405; J7030; Q9967

== ENCOUNTER 2021-06-06 07:11 | Emergency (ER) | payer OTHER, SELFPAY ==
[2021-06-06 07:44] VITALS: BP 168/101; PULSE 59; RESP 18; TEMP 36.1; O2SAT 97; BMI 38.9
--- NOTE | 2021-06-06 07:52 | CT_ITS ---
WS: [id number] CT ABDOMEN AND PELVIS WITH CONTRAST HISTORY: Abdominal pain for one week. TECHNIQUE: Imaging performed of the abdomen and pelvis with IV contrast. Single phase imaging of the abdomen. Coronal and sagittal reformats are submitted. All CT scans at [facility] use at [address] one of these dose optimization techniques: automated exposure control; mA and/or kV adjustment per patient size (includes targeted exams where dose is matched to clinical indication); or iterative re construction. IV CONTRAST: Omnipaque 300; 95 mL IV. Oral contrast: No DLP: 1786.72 mGy.cm COMPARISON: 06/03/2021 Lower thorax: Lung bases are clear. Heart is normal size. Moderate size hiatal hernia. Hernia has inc reased in size since 06/04/2021. Liver/biliary system: Normal size with no intrahepatic dilatation. Tiny hypodensity along the inferio r RIGHT lobe the liver. Too small to characterize by CT. Gallbladder: Normal. No gallstones or wall thickening. No pericholecystic fluid. Pancreas: Normal size pancreas and pancreatic duct. No adjacent inflammation. Spleen: Normal size spleen. No mass or infarct. Adrenal glands: Normal. Right kidney: Normal. Left kidney: Normal. Aorta: Mild atherosclerosis with no aneurysm. Lymphadenopathy: None. Free fluid: None. GI tract: Significant improvement in the gastric dilatation since the prior examination. Stomach is n ormal size. Improved small bowel distention. Less fluid throughout the small bowel. No wall thickenin g. The appendix is normal. There are a few scattered diverticula throughout the distal colon. No acut e diverticulitis. Abdominal wall: Umbilical hernia contains fat only. There are additional ventral abdominal and pelvic wall hernias containing fat only. Pelvis: No free fluid or adenopathy within the pelvis. Uterus is slightly lobulated. Suspect fibroid along the posterior myometrium. No pelvic mass or fluid. Bones: Mild increase in the lumbar lordosis. CT/CT abdomen pelvis w con* [id number] IMPRESSION: 1. Improvement in the stomach and small bowel fluid dilatation since 1. No obstruction. 2. Normal appendix. 3. Distal colonic diverticulosis without acute diverticulitis. 4. No bile duct dilatation.
--- NOTE | 2021-06-06 07:54 | ED_ITS ---
HPI - Abdominal Pain General: Chief Complaint: Abdominal Pain Stated Complaint: ABD PAIN Time Seen by Provider: 06/06/21 07:13 History of Present Illness: HPI narrative: 58-year-old female presents emergency room with continued abdominal pain was seen couple days ago had a lot of retention of stomach contents questionable early ileus. She is not had a bowel movement she still has been very nauseous and has vomited a couple of times. She feels very bloated. She denies any fever sweats chills no dysuria urgency or frequency refers most of her pain to the right upper quadrant epigastric region. She has some ventral hernias that were seen previously with no pain in that region at this time. MD elicited complaint: abdominal pain Pertinent past history: other (Seen here for same complaint 3 days ago) Onset (ago): day(s) Pain Consistency: constant Location: Epigastric and RUQ Severity: moderate Quality: cramping Radiation: none Migration to: no migration Exacerbating factors: nothing Relieving factors: nothing Associated Symptoms: Reports anorexia, bloating, constipation, GI cramping, naus ea and poor appetite; Denies belching, change in bowel habits, change in stool character, chills, coffee ground emesis, diarrhea, dyspepsia, dysuria, excessive flatus, fever(s), heartburn, hematochezia, hematuria, hematemesis, fecal incontinence, loose stools, melena, syncope and vomiting Review of Systems Const: Denies: fever(s) or chills ENMT: Denies: throat pain, ear or mastoid pain, nasal discharge or nasal congestion Card: Denies: syncope Resp: Denies: dyspnea, productive cough or non-productive cough GI: Reports: nausea, constipation, bloating and GI cramping; Denies: vomiting, hematemesis, coffee ground emesis, heartburn, diarrhea, belching, excessive flatus, fecal incontinence, change in bowel habits, change in stool character, hematochezia or melena : Denies: dysuria or hematuria Skin/Breast: Denies: rash or pruritus PFSH ED PFSH: Medical History Cervical disc disorder with myelopathy of mid-cervical region Dyslipidemia (high LDL; low HDL) Intervertebral disc disorder with radiculopathy of lumbosacral region Surgical History Airway compromise 2009 Dr. Argentina Jameson [employer] airway enlargement History of carpal tunnel surgery of right wrist 1993 Internal impingement of right shoulder 2003 [place], [place] Tear of medial meniscus of right knee 09/14/2019 Right medial meniscectomy Family History Mother Lymphoid leukemia Diabetes Hypertension Father , Age 73 CAD (coronary artery disease) Myocardial infarction Stroke Hypertension Sister Hypertension Brother Hypertension Social History Smoking and tobacco status: never smoked Alcohol intake: never Household members: spouse Marital status: Current occupational status: employed Current occupation: Caregiver History of recent travel: No Physical Exam Const: COMMON NORMALS: no acute distress GENERAL APPEARANCE: cooperative and comfortable ORIENTATION/CONSCIOUSNESS: Yes awake, Yes oriented to person, Yes oriented to place and Yes oriented to time HENMT: COMMON NORMALS: normocephalic, atraumatic and hearing grossly normal bilaterally HEAD & SCALP: normocephalic and atraumatic Neck/C-Spine: COMMON NORMALS: no JVD Resp: COMMON NORMALS: normal respiratory effort, No retractions, No use of accessory muscles and clear to auscultation bilaterally AUSCULTATION: clear to auscultation bilaterally Cardio: COMMON NORMALS: no JVD, regular rate, regular rhythm and No murmurs present (Cardio) RATE: regular rate RHYTHM: regular rhythm GI: AUSCULTATION: Yes Hypoactive bowel sounds present PALPATION: Yes Tenderness to palpation present (GI) (Epigastric) Details: RUQ and No Guarding due to palpation present (GI) Extremity: COMMON NORMALS: normal to inspection, capillary refill normal, no clubbing, cyanosis or edema, no calf tenderness and no pedal edema Neuro: SENSORIUM/ORIENTATION: Yes oriented to person, Yes oriented to place and Yes oriented to time Skin: COMMON NORMALS: no rashes or lesions noted GENERAL SKIN EXAM: no rashes or lesions noted Course Vital Signs: Vital signs: Vital Signs Temperature 98.3 F 06/06/21 08:43 Pulse Rate 51 L 06/06/21 08:43 Respiratory Rate 18 06/06/21 09:56 Blood Pressure 133/80 06/06/21 08:43 Pulse Oximetry 100 06/06/21 09:56 MDM - Abdominal Pain MDM Narrative: Medical decision making narrative: Reviewed imaging's and labs with the patient. Suspect a lot of this may be her hiatal hernia we will start her on a PPI. Another possibility is biliary colic although the history does not fit really well with that. Given the amount of times that she has been in and the difficulty is having I think she should have further evaluation we will set her up for a HIDA scan referral to surgery for an EGD. If she has worsening or change symptoms return advised her to stop using the narcotic I think that may be contributing to her GI symptoms. Additionally clear liquid diet for 2 days and then very very low fat to no fat simple carbohydrate diet beginning in 2 days. Reviewed what things she could and could not eat. Return if has further problems. Lab Data: Labs: Lab Results 06/06/21 06/06/21 06/06/21 07:52 07:52 07:52 WBC 5.4 10^3/uL 10^3/ uL (4.0-10.0) RBC 4.44 10^6/uL 10^6 /uL (4.1-5.3) Hgb 13.6 g/dL g/dL (11.5-15.3) Hct 40.0 % % (37.0-47.0) MCV 90.1 fl fl (81-99) MCH 30.6 pg pg (28.0-34.0) MCHC 34.0 g/dL g/dL (30.0-36.0) RDW 13.3 % % (12.1-15.1) Plt Count 248 10^3/cmm 10^3 /cmm (130-400) MPV 10.0 fL fL (7.4-10.4) Neut % (Auto) 47.7 % % Lymph % (Auto) 40.7 % % [place] % (Auto) 8.6 % % Eos % (Auto) 2.4 % % Baso % (Auto) 0.4 % % Neut # (Auto) 2.57 10^3/uL 10^3 /uL (1.8-7.7) Lymph # (Auto) 2.2 10^3/uL 10^3/ uL (0.8-4.8) [place] # (Auto) 0.5 10^3/uL 10^3/ uL (0.2-0.9) Eos # (Auto) 0.1 10^3/uL 10^3/ uL (0.0-0.8) Baso # (Auto) 0.0 10^3/uL 10^3/ uL (0.0-0.1) Nucleated RBC % (a uto) 0 % % Nucleated RBCs # 0.0 /100WBC /100W BC Sodium 139 mmol/L mmol/L (136-145) Potassium 4.0 mmol/L mmol/L (3.5-5.1) Chloride 103 mmol/L mmol/L (98-107) Carbon Dioxide 28 mmol/L mmol/L (22-29) Anion Gap 12.0 (5-19) BUN 8 mg/dL mg/dL (8-23) Creatinine 0.6 mg/dL mg/dL (0.5-0.9) GFR Calculation 101.3 mL/min mL/m in (90-130) Glucose 100 mg/dL mg/dL (65-115) Calculated Osmolal ity 286 mOsm/kg mOsm/ kg (285-295) Lactic Acid 1.2 mmol/L mmol/L (0.5-2.2) Calcium 9.0 mg/dL mg/dL (8.5-10.5) Total Bilirubin 0.5 mg/dL mg/dL (0.15-1.2) AST 21 U/L U/L (0-32) ALT 24 U/L U/L (0-33) Alkaline Phosphata se 68 IU/L IU/L (35-105) Total Protein 6.3 g/dL L g/dL (6.6-8.7) Albumin 3.9 g/dL g/dL (3.5-5.2) Globulin 2.4 g/dL g/dL (1.3-4.6) Lipase 18 U/L U/L (13-60) Urine Color Urine Appearance Urine pH Ur Specific Gravit y Urine Protein Urine Glucose (UA) Urine Ketones Urine Blood Urine Nitrate Urine Bilirubin Urine Urobilinogen Ur Leukocyte Marivel ase 06/06/21 08:45 WBC RBC Hgb Hct MCV MCH MCHC RDW Plt Count MPV Neut % (Auto) Lymph % (Auto) [place] % (Auto) Eos % (Auto) Baso % (Auto) Neut # (Auto) Lymph # (Auto) [place] # (Auto) Eos # (Auto) Baso # (Auto) Nucleated RBC % (a uto) Nucleated RBCs # Sodium Potassium Chloride Carbon Dioxide Anion Gap BUN Creatinine GFR Calculation Glucose Calculated Osmolal ity Lactic Acid Calcium Total Bilirubin AST ALT Alkaline Phosphata se Total Protein Albumin Globulin Lipase Urine Color Colorless (Yellow) Urine Appearance Clear (CLEAR) Urine pH 6 (5-7) Ur Specific Gravit y 1.005 (1.005-1.030) Urine Protein Neg (Negative) Urine Glucose (UA) Norm (Normal) Urine Ketones Negative (Negative) Urine Blood Neg (Negative) Urine Nitrate Negative (Negative) Urine Bilirubin Neg (Negative) Urine Urobilinogen Norm mg/dL mg/dL (Negative) Ur Leukocyte Marivel ase Negative (Negative) Discharge Plan Discharge Patient Disposition: Home Clinical Impression: Hernia, hiatal, Abdominal pain Condition: Stable Prescriptions: New pantoprazole 40 mg tablet,delayed release (DR/EC) 40 mg PO BID 14 Days Qty: 28 RF: 0 No Action multivitamin Capsule 1 cap PO QAM RF: 0 potassium chloride PO DAILY RF: 0 ascorbic acid (vitamin C) PO DAILY RF: 0 mecobalamin (vitamin B12) PO DAILY RF: 0 niacin 500 mg tablet extended release 24 hr 500 mg PO .hs Qty: 90 RF: 3 Fish, Flax andBorage Oil(Prim) 400-400-200 mg capsule 1 cap PO DAILY RF: 0 K2 Plus D3 1,000-100 unit-mcg tablet 1 tab PO DAILY RF: 0 acetaminophen 500 mg capsule 500 mg PO Q6H PRN (Reason: Pain) RF: 0 atorvastatin 40 mg tablet 40 mg PO DAILY 90 Days Qty: 90 RF: 0 hydrocodone-acetaminophen 5-325 mg tablet 1 tab PO Q6H PRN (Reason: pain) Qty: 14 RF: 0 ondansetron 4 mg tablet,disintegrating 4 mg PO Q6H PRN (Reason: nausea and vomiting) Qty: 14 RF: 0 Discharge Orders: Discharge ED (Routine); Ordered 06/06/21 Ordered By: Gómez Jim Referrals: Wesley Abdul MD [Primary Care Provider] - Discharge Diet: As Directed Discharge Activity: Increase activity as tolerated Patient Instructions: Abdominal Pain (ED), Opioid Safety Activity Restrictions/Additional Instructions: r d manager will make arrangements for you to see surgery for endoscopy. 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
[2021-06-06 08:09] LABS: Basophils % 0.4 %; Eosinophils # 0.1 10^3/uL (0.0-0.8); Eosinophils % 2.4 %; Hemoglobin 13.6 g/dL (11.5-15.3); Lymphocytes # 2.2 10^3/uL (0.8-4.8); Lymphocytes % 40.7 %; Mean Corpuscular Hemoglobin 30.6 pg (28.0-34.0); Mean Corpuscular Volume 90.1 fl (81-99); Monocytes # 0.5 10^3/uL (0.2-0.9); Monocytes % 8.6 %; Neutrophils # 2.57 10^3/uL (1.8-7.7); Neutrophils % 47.7 %; Nucleated Red Blood Cells % 0 %; Platelet Count 248 10^3/cmm (130-400); Red Blood Count 4.44 10^6/uL (4.1-5.3); Red Cell Distribution Width 13.3 % (12.1-15.1); White Blood Count 5.4 10^3/uL (4.0-10.0)
[2021-06-06 08:29] LABS: Alanine Aminotransferase 24 U/L (0-33); Albumin Level 3.9 g/dL (3.5-5.2); Alkaline Phosphatase 68 IU/L (35-105); Aspartate Amino Transferase 21 U/L (0-32); Blood Urea Nitrogen 8 mg/dL (8-23); Carbon Dioxide 28 mmol/L (22-29); Chloride 103 mmol/L (98-107); Globulin 2.4 g/dL (1.3-4.6); Glomerular Filtration Rate 101.3 mL/min (90-130); Glucose 100 mg/dL (65-115); Lipase 18 U/L (13-60); Osmolality Calculated 286 mOsm/kg (285-295); Sodium 139 mmol/L (136-145); Total Bilirubin 0.5 mg/dL (0.15-1.2); Total Protein 6.3 g/dL (6.6-8.7)
[2021-06-06 08:30] LABS: Lactic Sepsis W/Reflex 1.2 mmol/L (0.5-2.2)
[2021-06-06] MEDS: iohexol 300 mg/mL 100 mL Btl IV (08:30)
[2021-06-06 08:43] VITALS: BP 133/80; PULSE 51; RESP 18; TEMP 36.8; O2SAT 100
[2021-06-06 08:53] VITALS: RESP 18; O2SAT 100
[2021-06-06] MEDS: morphine 4 mg/mL SDV 1 mL IVP (08:53)
[2021-06-06] MEDS: ondansetron 2 mg/ML SDV 2 mL 4 MG IVP (08:54)
[2021-06-06] MEDS: sodium chloride 0.9% 1,000 ML 999 ML IV (08:55)
[2021-06-06 09:12] LABS: Add Urine Microscopic? NO; Charge for UA Resulting for Rev
[2021-06-06 09:19] LABS: Bilirubin Urine Neg (Negative); Blood Urine Neg (Negative); Glucose Urine UA Norm (Normal); Ketones Urine Negative (Negative); Leukocyte Esterase Urine Negative (Negative); Nitrate Urine Negative (Negative); Protein Urine Neg (Negative); Specific Gravity, Urine 1.005 (1.005-1.030); Urine Appearance Clear (CLEAR); Urine Color Colorless (Yellow); Urobilinogen Urine Norm (Negative); pH Urine 6 (5-7)
[2021-06-06 09:56] VITALS: RESP 18; O2SAT 100
--- NOTE | 2021-06-07 13:17 | DCPLANNER ---
Addendum entered by Cleo Barron 06/13/21 14:54: Patient was seen by Dr. Lopez. Original Note: manager registration had message to schedule a follow up appointment for patient for an outpatient HIDA scan. manager registration faxed signed order to centralized scheduling, who will call patient with appointment information. manager registration also had message to schedule a follow up appointment for patient with general surgery for an EGD. manager registration emailed patients information to Delores Che and Angelica at [facility] General Surgery / ENT clinic. Patients information will be printed and reviewed. Clinic will call patient with appointment information.
--- NOTE | 2021-07-10 11:14 | DCPLANNER ---
Patient had an appointment scheduled - the scan was cancelled by patient, did not want to have it completed at this time.
== END 2021-06-06 09:56 | disposition home or self-care (01) ==
PROVIDERS: Physician Assistant; Emergency Provider Family Medicine; PCP Family Medicine Adult Medicine
DX: K44.9 Diaphragmatic hernia without obstruction or gangrene (principal); E78.5 Hyperlipidemia, unspecified
CPT/HCPCS: 74177; 80053; 81003; 83605; 83690; 85025; 96361; 96374; 96375; 99283; J2270; J2405; J7030; Q9967

== ENCOUNTER → 2021-10-22 11:19 | Outpatient (BNVA) | payer OTHER, SELFPAY | PROVIDERS: PCP Family Medicine Adult Medicine; Visit Provider Family Medicine Adult Medicine | DX: E78.5 Hyperlipidemia, unspecified (principal); I10 Essential (primary) hypertension | CPT/HCPCS: 80053; 80061; 84443 ==

== ENCOUNTER 2022-01-21 11:12 | Outpatient (CLI) | payer SELFPAY ==
--- NOTE | 2022-01-21 11:45 | MR_ITS ---
WS: [id number] MRI LEFT SHOULDER NONCONTRAST TECHNIQUE: Sagittal T2, coronal T1, T2 and proton density imaging. Axial gradient PDE imaging. CLINICAL INFORMATION: Chronic pain COMPARISON: None. FINDINGS: Moderate degenerative arthritis at the AC joint with mild edema. Mild downsloping acromion with subac romial spurring. Impingement on the distal supraspinatus. Tendinopathy in the distal supraspinatus. T iny tear at the supraspinatus insertion. Normal infraspinatus. Normal teres minor and subscapularis. Normal biceps tendon in the bicipital groove. Normal intra-articular biceps tendon. Normal biceps lab ral anchor. Glenoid labrum appears grossly normal. MR/MR shoulder LT wo con* [id number] IMPRESSION: 1. Moderate degenerative arthritis at the AC joint with mild downsloping acrom ion. Slight impingement on the distal supraspinatus. Narrowing of the subacromi al space. 2. Tendinopathy in the distal supraspinatus. Tiny tear supraspinatus insertion . No tendon retraction. Chronic thinning of the supraspinatus tendon 3. Normal infraspinatus. Normal teres minor and subscapularis. 4. Normal biceps tendon in the bicipital groove. 5. Normal biceps labral anchor. 6. No other acute findings.
== END 2022-01-21 11:13 | disposition home or self-care (01) ==
LOC: RAD 11:13
PROVIDERS: PCP Family Medicine Adult Medicine; Visit Provider Family Medicine Adult Medicine
DX: G89.29 Other chronic pain (principal); M25.512 Pain in left shoulder; E78.5 Hyperlipidemia, unspecified
CPT/HCPCS: 73221; 80053; 80061; 85025

== ENCOUNTER 2022-02-04 06:00 | Outpatient (RCR) | payer SELFPAY | END 2022-02-06 23:59 | disposition home or self-care (01) | LOC: SPT 06:00 | PROVIDERS: PCP Family Medicine Adult Medicine; Referring Provider Orthopaedic Surgery; Visit Provider Orthopaedic Surgery | DX: M75.02 Adhesive capsulitis of left shoulder (principal); M25.512 Pain in left shoulder; M75.42 Impingement syndrome of left shoulder | CPT/HCPCS: 97110; 97162 ==

== ENCOUNTER 2022-02-07 06:00 | Outpatient (RCR) | payer SELFPAY | END 2022-03-09 23:59 | disposition home or self-care (01) | LOC: SPT 06:00 | PROVIDERS: PCP Family Medicine Adult Medicine; Referring Provider Orthopaedic Surgery; Visit Provider Orthopaedic Surgery | DX: M75.02 Adhesive capsulitis of left shoulder (principal); M25.512 Pain in left shoulder; M75.42 Impingement syndrome of left shoulder | CPT/HCPCS: 97110 ==

== ENCOUNTER 2022-03-10 06:00 | Outpatient (RCR) | payer SELFPAY | END 2022-04-09 23:59 | disposition home or self-care (01) | LOC: SPT 06:00 | PROVIDERS: PCP Family Medicine Adult Medicine; Referring Provider Orthopaedic Surgery; Visit Provider Orthopaedic Surgery | DX: M75.02 Adhesive capsulitis of left shoulder (principal) | CPT/HCPCS: 97110; 97150 ==

== ENCOUNTER 2022-04-10 06:00 | Outpatient (RCR) | payer SELFPAY | END 2022-05-09 23:59 | disposition home or self-care (01) | LOC: SPT 06:00 | PROVIDERS: PCP Family Medicine Adult Medicine; Visit Provider Orthopaedic Surgery | DX: M75.02 Adhesive capsulitis of left shoulder (principal); M25.512 Pain in left shoulder; M75.42 Impingement syndrome of left shoulder | CPT/HCPCS: 97110 ==

== ENCOUNTER → 2022-07-23 11:00 | Outpatient (BNVA) | payer SELFPAY | PROVIDERS: PCP Family Medicine Adult Medicine; Visit Provider Family Medicine Adult Medicine | DX: J37.1 Chronic laryngotracheitis (principal); I10 Essential (primary) hypertension; E78.5 Hyperlipidemia, unspecified; E66.9 Obesity, unspecified | CPT/HCPCS: 80053; 80061; 83036; 84443; 85025 ==

== ENCOUNTER 2022-10-30 21:38 | Emergency (ER) | payer SELFPAY ==
--- NOTE | 2022-10-30 21:41 | ECG_ITS ---
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 Measurements Intervals [place] Rate: 95 P: 70 MS: 164 QRS: 79 QRSD: 81 T: 72 QT: 340 QTc: 428 Interpretive Statements SINUS RHYTHM No previous ECG available for comparison Electronically Signed On 10-31-2022 22:59:06 CDT by Lily Fuentes M.D. [id number]
--- NOTE | 2022-10-30 21:41 | XRR_ITS ---
PROCEDURE INFORMATION: Exam: XR Chest Exam date and time: 10/30/2022 10:05 PM Age: 61 years old Clinical indication: Cough and wheezing; Additional info: SOB TECHNIQUE: Imaging protocol: Radiologic exam of the chest. Views: 1 view. COMPARISON: CR XR chest 1V portable [id number] 05/02/2020 2:17 AM FINDINGS: Lungs: Emphysematous changes. Right lower lobe atelectasis versus minimal infiltrate. Pleural spaces: Unremarkable. No pleural effusion. No pneumothorax. Heart/Mediastinum: Unremarkable. No cardiomegaly. Bones/joints: Unremarkable. XR/XR chest 1V portable [id number] IMPRESSION: 1. Emphysematous changes. 2. Right lower lobe atelectasis versus minimal infiltrate.
[2022-10-30 21:59] VITALS: BP 148/89; PULSE 107; RESP 18; TEMP 37.4; O2SAT 90; BMI 37.5
[2022-10-30 22:19] LABS: Basophils % 0.3 %; Eosinophils % 0.2 %; Hemoglobin 15.5 g/dL (11.5-15.3); Lymphocytes # 1.9 10^3/uL (0.8-4.8); Lymphocytes % 15.4 %; Mean Corpuscular HGB Conc 34.4 g/dL (30.0-36.0); Mean Corpuscular Hemoglobin 30.2 pg (28.0-34.0); Mean Corpuscular Volume 87.5 fl (81-99); Mean Platelet Volume 9.5 fL (7.4-10.4); Monocytes % 8.1 %; Neutrophils # 9.28 10^3/uL (1.8-7.7); Neutrophils % 75.6 %; Nucleated Red Blood Cells % 0 %; Platelet Count 278 10^3/cmm (130-400); Red Blood Count 5.14 10^6/uL (4.1-5.3); Red Cell Distribution Width 12.9 % (12.1-15.1); White Blood Count 12.3 10^3/uL (4.0-10.0)
[2022-10-30 22:54] LABS: Alanine Aminotransferase 34 U/L (0-33); Albumin Level 3.9 g/dL (3.5-5.2); Alkaline Phosphatase 94 U/L (35-105); Anion Gap 15.5 (5-19); Aspartate Amino Transferase 32 U/L (0-32); Blood Urea Nitrogen 13 mg/dL (8-23); Calcium 9.3 mg/dL (8.5-10.5); Carbon Dioxide 27 mmol/L (22-29); Chloride 100 mmol/L (98-107); Globulin 3.3 g/dL (1.3-4.6); Glomerular Filtration Rate 84.5 mL/min (90-130); Glucose 119 mg/dL (65-115); NT Pro B Type Natriuretic Pept 320 pg/mL (0-125); Osmolality Calculated 287 mOsm/kg (285-295); Potassium 4.5 mmol/L (3.5-5.1); Sodium 138 mmol/L (136-145); Total Bilirubin 0.3 mg/dL (0.15-1.2); Total Protein 7.2 g/dL (6.6-8.7)
--- NOTE | 2022-10-31 00:36 | W.ED.COVID ---
HPI - COVID General: Chief Complaint: COVID symptoms Stated Complaint: SOB\Coughing\Dizzy\Weak Time Seen by Provider: 10/31/22 00:31 Source: patient Mode of arrival: ambulatory Limitations: no limitations History of Present Illness: 61-year-old female states she has been having a cough congestion along with low-grade fever since Thursday states she has had some slight wheezing states it is worsened tonight as her cough has gotten much worse she denies any shortness of breath she is a low-grade fever here her oxygen sat in the room here is 94%. She is able speak in full sentences. She denies any pain denies any vomiting or diarrhea denies any worsening improving factors. COVID 19 common symptoms: positive fever(s), chills, non-productive cough, dyspnea and body aches; negative headache(s), throat pain, nausea, vomiting or diarrhea COVID 19 other sytmptoms: negative chest pain COVID Results: No Data to Display Review of Systems Const: Reports: fever(s), chills and body aches Eyes: Denies: blurry vision or eye discomfort ENMT: Denies: throat pain or dental pain Card: Denies: chest pain Resp: Reports: dyspnea and non-productive cough GI: Denies: abdominal pain, nausea, vomiting or diarrhea : Denies: dysuria Musc: Denies: neck pain or back pain Skin/Breast: Denies: rash Neuro: Denies: headache(s) Psych: Denies: depression Gabriel/Lymph: Denies: easy bruising All/Imm: Denies: urticaria PFSH ED PFSH: Medical History Allergic rhinitis due to allergen Anxiety and depression Cervical disc disorder with myelopathy of mid-cervical region Chronic cough Chronic laryngitis and laryngotracheitis Chronic left shoulder pain COVID-19 04/10/2020 Dyslipidemia (high LDL; low HDL) GERD (gastroesophageal reflux disease) Hypertension, essential, benign Intervertebral disc disorder with radiculopathy of lumbosacral region Left carpal tunnel syndrome Mass of soft tissue of abdomen Purulent postnasal drainage Thoracic outlet syndrome Well adult exam Surgical History Airway compromise 2009 Dr. Argentina Jameson [employer] airway enlargement History of carpal tunnel surgery of right wrist 1993 Internal impingement of right shoulder 2003 [place], [place] Tear of medial meniscus of right knee 09/14/2019 Right medial meniscectomy Family History Mother Lymphoid leukemia Diabetes Hypertension Father , Age 73 CAD (coronary artery disease) Myocardial infarction Stroke Hypertension Sister Hypertension Brother Hypertension Social History Smoking and tobacco status: never smoked Alcohol intake: never Household members: spouse Marital status: Current occupational status: employed Current occupation: Caregiver Physical Exam Const: COMMON NORMALS: no acute distress, patient oriented x3 and healthy appearing HENMT: COMMON NORMALS: normocephalic and atraumatic HEAD & SCALP: normocephalic and atraumatic Eye: COMMON NORMALS: Equal, round and reactive pupils present and EOMs intact bilaterally PUPIL: Yes Equal, round and reactive pupils present Neck/C-Spine: COMMON NORMALS: full ROM and supple Chest: COMMONS NORMALS: normal inspection of the chest and normal palpation of entire chest wall Resp: COMMON NORMALS: normal respiratory effort, No retractions and No use of accessory muscles AUSCULTATION: wheezes Cardio: COMMON NORMALS: regular rate, regular rhythm and No murmurs present (Cardio) RATE: regular rate RHYTHM: regular rhythm GI: COMMON NORMALS: Normal to inspection, nondistended, normoactive bowel sounds present, Soft to palpation, non-tender and no masses PALPATION: Yes Soft to palpation Extremity: COMMON NORMALS: normal to inspection and full ROM Neuro: COMMON NORMALS: patient oriented x3, moves all extremities and no focal motor deficits Psych: COMMON NORMALS: mental status grossly normal, Normal thought process present and cooperative THOUGHT PROCESS: Normal thought process present Skin: COMMON NORMALS: no rashes or lesions noted and no wounds GENERAL SKIN EXAM: no rashes or lesions noted Course Vital Signs: Vital signs: Vital Signs Temperature 99.4 F 10/30/22 21:59 Pulse Rate 107 H 10/30/22 21:59 Respiratory Rate 18 10/30/22 21:59 Blood Pressure 148/89 10/30/22 21:59 Pulse Oximetry 90 10/30/22 21:59 Oxygen Delivery Me thod 10/30/22 21:59 MDM - COVID Medical Decision Making Patient presents here with a cough she does have some wheezing here x-ray shows possible pneumonia could be viral as well as her cough been since Thursday and does appear to maybe a slight pneumonia on x-ray will start on antibiotics patient given Decadron here along with albuterol inhaler we will discharge her with an inhaler as well. She is to follow-up with PCP and return if worsening. Lab Data 10/30/22 22:14 10/30/22 22:14 Radiology Impressions Chest X-Ray 10/30/22 21:41 IMPRESSION: 1. Emphysematous changes. 2. Right lower lobe atelectasis versus minimal infiltrate. Laboratory Results WBC 12.3 10^3/uL (4.0-10.0) H 10/30/22 22:14 RBC 5.14 10^6/uL (4.1-5.3) 10/30/22 22:14 Hgb 15.5 g/dL (11.5-15.3) H 10/30/22 22:14 Hct 45.0 % (37.0-47.0) 10/30/22 22:14 MCV 87.5 fl (81-99) 10/30/22 22:14 MCH 30.2 pg (28.0-34.0) 10/30/22 22:14 MCHC 34.4 g/dL (30.0-36.0) 10/30/22 22:14 RDW 12.9 % (12.1-15.1) 10/30/22 22:14 Plt Count 278 10^3/cmm (130-400) 10/30/22 22:14 MPV 9.5 fL (7.4-10.4) 10/30/22 22:14 Neut % (Auto) 75.6 % 10/30/22 22:14 Lymph % (Auto) 15.4 % 10/30/22 22:14 [place] % (Auto) 8.1 % 10/30/22 22:14 Eos % (Auto) 0.2 % 10/30/22 22:14 Baso % (Auto) 0.3 % 10/30/22 22:14 Neut # (Auto) 9.28 10^3/uL (1.8-7.7) H 10/30/22 22:14 Lymph # (Auto) 1.9 10^3/uL (0.8-4.8) 10/30/22 22:14 [place] # (Auto) 1.0 10^3/uL (0.2-0.9) H 10/30/22 22:14 Eos # (Auto) 0.0 10^3/uL (0.0-0.8) 10/30/22 22:14 Baso # (Auto) 0.0 10^3/uL (0.0-0.1) 10/30/22 22:14 Nucleated RBC % (auto) 0 % 10/30/22 22:14 Nucleated RBCs # 0.0 /100WBC 10/30/22 22:14 Sodium 138 mmol/L (136-145) 10/30/22 22:14 Potassium 4.5 mmol/L (3.5-5.1) 10/30/22 22:14 Chloride 100 mmol/L (98-107) 10/30/22 22:14 Carbon Dioxide 27 mmol/L (22-29) 10/30/22 22:14 Anion Gap 15.5 (5-19) 10/30/22 22:14 BUN 13 mg/dL (8-23) 10/30/22 22:14 Creatinine 0.7 mg/dL (0.5-0.9) 10/30/22 22:14 GFR Calculation 84.5 mL/min (90-130) L 10/30/22 22:14 Glucose 119 mg/dL (65-115) H 10/30/22 22:14 Calculated Osmolality 287 mOsm/kg (285-295) 10/30/22 22:14 Calcium 9.3 mg/dL (8.5-10.5) 10/30/22 22:14 Total Bilirubin 0.3 mg/dL (0.15-1.2) 10/30/22 22:14 AST 32 U/L (0-32) 10/30/22 22:14 ALT 34 U/L (0-33) H 10/30/22 22:14 Alkaline Phosphatase 94 U/L (35-105) 10/30/22 22:14 NT-Pro-B Natriuret Pep 320 pg/mL (0-125) H 10/30/22 22:14 Total Protein 7.2 g/dL (6.6-8.7) 10/30/22 22:14 Albumin 3.9 g/dL (3.5-5.2) 10/30/22 22:14 Globulin 3.3 g/dL (1.3-4.6) 10/30/22 22:14 No Data to Display EKG Data EKG 1: I personally reviewed and interpreted this EKG as follows: EKG interpretation date: 10/31/22 EKG interpretation time: 00:30 Interpretation: nsr hr [address] or t wave abnormalities qrs 81 qtc 393 Discharge Plan Discharge Patient Disposition: Home Clinical Impression: Pneumonia Condition: Stable Prescriptions: New albuterol sulfate 90 mcg/actuation HFA aerosol inhaler 2 inh INHALATION Q6H PRN (Reason: shortness of breath or wheezing) Qty: 8 0RF doxycycline hyclate 100 mg tablet 100 mg PO BID 7 Days Qty: 14 0RF No Action potassium chloride PO DAILY ascorbic acid (vitamin C) PO DAILY Fish, Flax andBorage Oil(Prim) 400-400-200 mg capsule 1 cap PO DAILY K2 Plus D3 1,000-100 unit-mcg tablet 1 tab PO DAILY acetaminophen 500 mg capsule 500 mg PO Q6H PRN (Reason: Pain) lisinopril 20 mg tablet 20 mg PO DAILY Qty: 30 1RF [employer] PO atorvastatin 80 mg tablet 80 mg PO DAILY Qty: 90 2RF loratadine 10 mg tablet 10 mg PO DAILY Qty: 90 1RF azithromycin 250 mg tablet See Rx Instructions PO .COMPLEX Qty: 6 0RF Rx Instructions: For 250 mg dose pack: take 500 mg today (day 1), then 250 mg for 4 days (days 2-5) PO Discharge Orders: Discharge ED (Routine); Ordered 10/31/22 Ordered By: Carmelita Green Referrals: Wesley Abdul MD [Primary Care Provider] - 1-3 days Discharge Diet: Advance as tolerated Discharge Activity: Resume usual activity Patient Instructions: Community Acquired Pneumonia (ED) Coding Level of Care 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
[2022-10-31 00:43] VITALS: BP 140/91; PULSE 98; RESP 18; O2SAT 93
[2022-10-31] MEDS: albuterol 8 gm MDI 2 PUFF INHALATION (00:48)
[2022-10-31 00:49] VITALS: O2SAT 93
[2022-10-31] MEDS: doxycycline 100 mg Tablet PO (00:49)
[2022-10-31 00:52] VITALS: PULSE 100; RESP 18; O2SAT 96
[2022-10-31 01:00] VITALS: BP 127/75; PULSE 97; RESP 18; O2SAT 93
[2022-10-31 01:19] LABS: Influenza A by IFA negative (Negative); Influenza B by IFA negative (Negative); SARS Covid-2 Antigen negative (Negative)
== END 2022-10-31 01:05 | disposition home or self-care (01) ==
PROVIDERS: Emergency Provider Emergency Medicine; PCP Family Medicine Adult Medicine
DX: J18.9 Pneumonia, unspecified organism (principal); E78.5 Hyperlipidemia, unspecified; I10 Essential (primary) hypertension
CPT/HCPCS: 36415; 71045; 80053; 83880; 85025; 87426; 87804; 93005; 94640; 99285; J3535

== ENCOUNTER → 2023-05-22 11:15 | Outpatient (BNVA) | payer BC, MEDICAID, SELFPAY | PROVIDERS: PCP Family Medicine Adult Medicine; Visit Provider Family Medicine Adult Medicine | DX: E78.5 Hyperlipidemia, unspecified (principal); M51.17 Intervertebral disc disorders with radiculopathy, lumbosacral region; M53.3 Sacrococcygeal disorders, not elsewhere classified | CPT/HCPCS: 80061; 85651 ==

== ENCOUNTER 2023-08-11 15:52 | Emergency (ER) | payer BC, MEDICAID, SELFPAY ==
[2023-08-11 16:09] VITALS: BP 190/107; PULSE 71; RESP 18; TEMP 36.6; O2SAT 97; BMI 38.9
[2023-08-11 16:23] VITALS: BP 180/102; PULSE 85; RESP 14; TEMP 36.8; O2SAT 97
--- NOTE | 2023-08-11 16:27 | XRR_ITS ---
PROCEDURE INFORMATION: Exam: XR Chest Exam date and time: 08/11/2023 4:31 PM Age: 62 years old Clinical indication: Other: Reports leg swelling TECHNIQUE: Imaging protocol: Radiologic exam of the chest. Views: 1 view. COMPARISON: 1. CR XR chest 1V portable [id number] 10/30/2022 10:05 PM 2. CR XR chest 1V portable [id number] 05/02/2020 2:17 AM 3. CR XR chest 1V [id number] 08/09/2018 1:30 AM FINDINGS: Lungs: Unremarkable. No consolidation. Pleural spaces: Unremarkable. No pleural effusion. No pneumothorax. Heart/Mediastinum: Unremarkable. No cardiomegaly. Vasculature: Aortic arch atherosclerotic calcification. Bones/joints: Degenerative changes along the spine. XR/XR chest 1V portable [id number] IMPRESSION: No acute findings.
--- NOTE | 2023-08-11 16:29 | W.ED.EXTPRO ---
Documented by User: [email or web address] Campbell 08/11/23 16:55 HPI - Extremity Problem General: Chief complaint: Extremity Injury, Lower Stated complaint: swelling in legs, ray on left knee Time Seen by Provider: 08/11/23 16:18 Source: patient Mode of arrival: ambulatory Limitations: no limitations History of Present Illness: Patient is a 62-year-old female presents to ED today with complaint of bilateral leg swelling. Patient states she initially began noticing the swelling approximately a month ago following an abdominal hernia repair by Dr. Lopez. Patient states she has had follow-up with Dr. Lopez and seems to be healing well following the surgery. She feels like both of her legs are swollen and into her abdomen as well. Patient is not having abdominal pain. Surgical incisions are well-healed. Patient also has a complaint of some possible mild redness to her left knee. Patient is ambulatory on the extremities without difficulty or assistance. No systemic symptoms. She denies history of CHF. MD Complaint: extremity pain and extremity swelling Onset (ago): week(s) Pain Consistency: constant Location: left, right and lower extremity Radiation: none Relieving factors: elevation Exacerbating factors: walking Associated symptoms: Reports no associated symptoms; Deny chest pain or fever(s) Context: recent surgery/procedure (last month) Review of Systems Const: Denies: fever(s), chills, body aches, fatigue or malaise Card: Denies: chest pain Resp: Denies: dyspnea Musc: Reports: extremity pain and extremity swelling; Denies: neck pain, back pain, joint pain, joint swelling, joint redness, joint warmth, joint stiffness, limited range of motion, muscle cramps, muscle weakness or decrease in muscle mass Neuro: Denies: headache(s), numbness in extremities, weakness in extremities, sensory changes or difficulty walking [facility] ED PFSH: Medical History Chronic hoarseness Acute pharyngitis Ventral hernia Sacroiliac joint pain Chronic laryngitis and laryngotracheitis Chronic left shoulder pain Hypertension, essential, benign Anxiety and depression GERD (gastroesophageal reflux disease) Well adult exam Allergic rhinitis due to allergen Hernia, hiatal Dyslipidemia (high LDL; low HDL) Mass of soft tissue of abdomen Thoracic outlet syndrome Left carpal tunnel syndrome 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 Argentina [employer] airway enlargement History of carpal tunnel surgery of right wrist 1993 Internal impingement of right shoulder 2003 [place], [place] Tear of medial meniscus of right knee 09/14/2019 Right medial meniscectomy Family History Mother Lymphoid leukemia Diabetes Hypertension Father , Age 73 CAD (coronary artery disease) Myocardial infarction Stroke Hypertension Sister Hypertension Brother Hypertension Social History Smoking and tobacco/nicotine status: never used tobacco/nicotine Alcohol intake: never Substance/Drug Use: never Household members: spouse Marital status: Current occupational status: employed Current occupation: Caregiver Physical Exam Const: COMMON NORMALS: no acute distress, patient oriented x3, no limitations, alert and well nourished GENERAL APPEARANCE: cooperative NUTRITIONAL APPEARANCE: obese ORIENTATION/CONSCIOUSNESS: Yes awake, Yes oriented to person, Yes oriented to place and Yes oriented to time Resp: COMMON NORMALS: normal respiratory effort and clear to auscultation bilaterally AUSCULTATION: clear to auscultation bilaterally Cardio: COMMON NORMALS: regular rate and regular rhythm RATE: regular rate RHYTHM: regular rhythm GI: COMMON NORMALS: Normal to inspection, nondistended, normoactive bowel sounds present, Soft to palpation, No hepatosplenomegaly present and no masses INSPECTION: Yes normal to inspection PALPATION: Yes Soft to palpation and Yes No hepatosplenomegaly present OTHER: two horizontal abdominal scars from previous surgery; well healed; some induration underlying L incision : COMMON NORMALS: Yes no CVA tenderness BLADDER/KIDNEY EXAM: Yes no CVA tenderness Back/Pelvis: COMMON NORMALS: no CVA tenderness and thoracic and lumbar spine normal to inspection Extremity: COMMON NORMALS: full ROM, capillary refill normal and no joint enlargement NARRATIVE EXTREMITY EXAM: bilateral LEs are equal size, color, temp; edema is hard to appreciate as she is obese and I am not familiar with her baseline; she does have some mild indentation at her sock line bilaterally; bilateral significant varicosities GENERAL: Yes normal exam except as noted Neuro: COMMON NORMALS: patient oriented x3, moves all extremities, no focal motor deficits and no sensory deficits noted SENSORIUM/ORIENTATION: Yes alert, Yes oriented to person, Yes oriented to place and Yes oriented to time Course Vital Signs: Vital signs: Vital Signs Temperature 98.3 F 08/11/23 21:01 Pulse Rate 67 08/11/23 21:01 Respiratory Rate 18 08/11/23 21:01 Blood Pressure 156/80 08/11/23 21:01 Pulse Oximetry 97 08/11/23 21:01 Oxygen Delivery Me thod Room Air 08/11/23 18:11 MDM - Extremity (Nontraumatic) Lab Data 08/11/23 16:54 08/11/23 16:54 Radiology Impressions Chest X-Ray 08/11/23 16:27 IMPRESSION: No acute findings. Venous Duplex 08/11/23 18:17 IMPRESSION: 1. No sonographic evidence of deep vein thrombosis. 2. Thrombosed superficial varicosities along the medial aspect of the thigh and knee. Laboratory Results WBC 5.87 10^3/uL (3.29-11.43) 08/11/23 16:54 RBC 4.18 10^6/uL (3.85-5.65) 08/11/23 16:54 Hgb 13.00 g/dL (11.27-16.99) 08/11/23 16:54 Hct 38.3 % (36-47) 08/11/23 16:54 MCV 91.6 fl (85-98) 08/11/23 16:54 MCH 31.1 pg (27-33) 08/11/23 16:54 MCHC 33.9 g/dL (30-55) 08/11/23 16:54 RDW 13.2 % (12.1-15.1) 08/11/23 16:54 Plt Count 233 10^3/cmm (157-399) 08/11/23 16:54 MPV 9.6 fL (7.4-10.4) 08/11/23 16:54 Neut % (Auto) 62.6 % 08/11/23 16:54 Lymph % (Auto) 25.9 % 08/11/23 16:54 Cotton % (Auto) 8.7 % 08/11/23 16:54 Eos % (Auto) 2.0 % 08/11/23 16:54 Baso % (Auto) 0.3 % 08/11/23 16:54 Neut # (Auto) 3.67 10^3/uL (1.8-7.7) 08/11/23 16:54 Lymph # (Auto) 1.5 10^3/uL (0.8-4.8) 08/11/23 16:54 Cotton # (Auto) 0.5 10^3/uL (0.2-0.9) 08/11/23 16:54 Eos # (Auto) 0.1 10^3/uL (0.0-0.8) 08/11/23 16:54 Baso # (Auto) 0.0 10^3/uL (0.0-0.1) 08/11/23 16:54 Nucleated RBC % (auto) 0 % 08/11/23 16:54 Nucleated RBCs # 0.0 /100WBC 08/11/23 16:54 Sodium 142 mmol/L (136-145) 08/11/23 16:54 Potassium 4.4 mmol/L (3.5-5.1) 08/11/23 16:54 Chloride 106 mmol/L (98-107) 08/11/23 16:54 Carbon Dioxide 29 mmol/L (22-29) 08/11/23 16:54 Anion Gap 11.4 (5-19) 08/11/23 16:54 BUN 14 mg/dL (8-23) 08/11/23 16:54 Creatinine 0.9 mg/dL (0.5-0.9) 08/11/23 16:54 GFR Calculation 63.0 mL/min (90-130) L 08/11/23 16:54 Glucose 98 mg/dL (65-115) 08/11/23 16:54 Calculated Osmolality 294 mOsm/kg (285-295) 08/11/23 16:54 Calcium 8.9 mg/dL (8.5-10.5) 08/11/23 16:54 Total Bilirubin 0.4 mg/dL (0.15-1.2) 08/11/23 16:54 AST 20 U/L (0-32) 08/11/23 16:54 ALT 23 U/L (0-33) 08/11/23 16:54 Alkaline Phosphatase 75 U/L (35-105) 08/11/23 16:54 NT-Pro-B Natriuret Pep 150 pg/mL (0-125) H 08/11/23 16:54 Total Protein 6.3 g/dL (6.6-8.7) L 08/11/23 16:54 Albumin 3.8 g/dL (3.5-5.2) 08/11/23 16:54 Globulin 2.5 g/dL (1.3-4.6) 08/11/23 16:54 Discharge Plan Discharge Patient Disposition: Home Clinical Impression: Superficial thrombophlebitis Condition: Stable Prescriptions: No Action potassium chloride PO DAILY ascorbic acid (vitamin C) PO DAILY Fish, Flax andBorage Oil(Prim) 400-400-200 mg capsule 1 cap PO DAILY K2 Plus D3 1,000-100 unit-mcg tablet 1 tab PO DAILY acetaminophen 500 mg capsule 500 mg PO Q6H PRN (Reason: Pain) prednisone 20 mg tablet 20 mg PO DAILY Qty: 7 0RF [employer] PO doxycycline hyclate 100 mg capsule 100 mg PO BID Qty: 20 1RF loratadine 10 mg tablet 10 mg PO DAILY Qty: 90 1RF guaifenesin 1,200 mg tablet extended release 12hr 1,200 mg PO BID Qty: 30 2RF celecoxib 200 mg capsule 200 mg PO BID PRN (Reason: pain) Qty: 60 1RF lisinopril 20 mg tablet See Rx Instructions .ROUTE .COMPLEX Qty: 30 5RF Dose Instruction: TAKE ONE TABLET BY MOUTH EVERY DAY FOR BLOOD PRESSURE Rx Instructions: TAKE ONE TABLET BY MOUTH EVERY DAY FOR BLOOD PRESSURE albuterol sulfate 90 mcg/actuation HFA aerosol inhaler 2 inh INHALATION Q6H PRN (Reason: shortness of breath or wheezing) Qty: 8 0RF Discharge Orders: Discharge ED (Routine); Ordered 08/11/23 Ordered By: Pascale Means [facility] [place] Referrals: Wesley Abdul MD [Primary Care Provider] - Discharge Diet: Advance as tolerated Discharge Activity: Resume usual activity Patient Instructions: Superficial Thrombophlebitis (ED), Pain Management Activity Restrictions/Additional Instructions: As discussed, you do not have a deep vein thrombosis or DVT. I have provided you information with superficial thrombophlebitis. Please follow-up with your primary doctor return as needed for new concerning or worsening symptoms. 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[employer] Documented by User: ISAAC Johnson 08/11/23 21:10 HPI - Extremity Problem General: Chief complaint: Extremity Injury, Lower Stated complaint: swelling in legs, ray on left knee Time Seen by Provider: 08/11/23 16:18 PFSH ED PFSH: Medical History Chronic hoarseness Acute pharyngitis Ventral hernia Sacroiliac joint pain Chronic laryngitis and laryngotracheitis Chronic left shoulder pain Hypertension, essential, benign Anxiety and depression GERD (gastroesophageal reflux disease) Well adult exam Allergic rhinitis due to allergen Hernia, hiatal Dyslipidemia (high LDL; low HDL) Mass of soft tissue of abdomen Thoracic outlet syndrome Left carpal tunnel syndrome 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 Argentina [employer] airway enlargement History of carpal tunnel surgery of right wrist 1993 Internal impingement of right shoulder 2003 [place], [place] Tear of medial meniscus of right knee 09/14/2019 Right medial meniscectomy Family History Mother Lymphoid leukemia Diabetes Hypertension Father , Age 73 CAD (coronary artery disease) Myocardial infarction Stroke Hypertension Sister Hypertension Brother Hypertension Social History Smoking and tobacco/nicotine status: never used tobacco/nicotine Alcohol intake: never Substance/Drug Use: never Household members: spouse Marital status: Current occupational status: employed Current occupation: Caregiver Course Vital Signs: Vital signs: Vital Signs Temperature 98.3 F 08/11/23 21:01 Pulse Rate 67 08/11/23 21:01 Respiratory Rate 18 08/11/23 21:01 Blood Pressure 156/80 08/11/23 21:01 Pulse Oximetry 97 08/11/23 21:01 Oxygen Delivery Me thod Room Air 08/11/23 18:11 MDM - Extremity (Nontraumatic) Medical Decision Making Assumed care 1700 Patient was evaluated in the emergency department today for complaints of bilateral lower extremity swelling. Patient is a 62-year-old female presents to ED today with complaint of bilateral leg swelling. Patient states she initially began noticing the swelling approximately a month ago following an abdominal hernia repair by Dr. Lopez. Patient states she has had follow-up with Dr. Lopez and seems to be healing well following the surgery. She feels like both of her legs are swollen and into her abdomen as well. Patient is not having abdominal pain. Surgical incisions are well-healed. Patient also has a complaint of some possible mild redness to her left knee. Patient is ambulatory on the extremities without difficulty or assistance. No systemic symptoms. She denies history of CHF. Patient underwent chest x-ray and laboratory studies. Imaging and laboratory studies were unremarkable. When patient was set for discharge she really expressed concern for blood clots. I obtained a ultrasound venous duplex of the left lower extremity due to concerns. Diagnostics revealed no sonographic evidence of deep vein thrombosis. She has thrombosed superficial varicosities though. At this time no further diagnostics are warranted. Advised patient to follow-up with her primary care doctor. Return to the emergency department for new concerning or worsening symptoms Lab Data 08/11/23 16:54 08/11/23 16:54 Radiology Impressions Chest X-Ray 08/11/23 16:27 IMPRESSION: No acute findings. Venous Duplex 08/11/23 18:17 IMPRESSION: 1. No sonographic evidence of deep vein thrombosis. 2. Thrombosed superficial varicosities along the medial aspect of the thigh and knee. Laboratory Results WBC 5.87 10^3/uL (3.29-11.43) 08/11/23 16:54 RBC 4.18 10^6/uL (3.85-5.65) 08/11/23 16:54 Hgb 13.00 g/dL (11.27-16.99) 08/11/23 16:54 Hct 38.3 % (36-47) 08/11/23 16:54 MCV 91.6 fl (85-98) 08/11/23 16:54 MCH 31.1 pg (27-33) 08/11/23 16:54 MCHC 33.9 g/dL (30-55) 08/11/23 16:54 RDW 13.2 % (12.1-15.1) 08/11/23 16:54 Plt Count 233 10^3/cmm (157-399) 08/11/23 16:54 MPV 9.6 fL (7.4-10.4) 08/11/23 16:54 Neut % (Auto) 62.6 % 08/11/23 16:54 Lymph % (Auto) 25.9 % 08/11/23 16:54 Cotton % (Auto) 8.7 % 08/11/23 16:54 Eos % (Auto) 2.0 % 08/11/23 16:54 Baso % (Auto) 0.3 % 08/11/23 16:54 Neut # (Auto) 3.67 10^3/uL (1.8-7.7) 08/11/23 16:54 Lymph # (Auto) 1.5 10^3/uL (0.8-4.8) 08/11/23 16:54 Cotton # (Auto) 0.5 10^3/uL (0.2-0.9) 08/11/23 16:54 Eos # (Auto) 0.1 10^3/uL (0.0-0.8) 08/11/23 16:54 Baso # (Auto) 0.0 10^3/uL (0.0-0.1) 08/11/23 16:54 Nucleated RBC % (auto) 0 % 08/11/23 16:54 Nucleated RBCs # 0.0 /100WBC 08/11/23 16:54 Sodium 142 mmol/L (136-145) 08/11/23 16:54 Potassium 4.4 mmol/L (3.5-5.1) 08/11/23 16:54 Chloride 106 mmol/L (98-107) 08/11/23 16:54 Carbon Dioxide 29 mmol/L (22-29) 08/11/23 16:54 Anion Gap 11.4 (5-19) 08/11/23 16:54 BUN 14 mg/dL (8-23) 08/11/23 16:54 Creatinine 0.9 mg/dL (0.5-0.9) 08/11/23 16:54 GFR Calculation 63.0 mL/min (90-130) L 08/11/23 16:54 Glucose 98 mg/dL (65-115) 08/11/23 16:54 Calculated Osmolality 294 mOsm/kg (285-295) 08/11/23 16:54 Calcium 8.9 mg/dL (8.5-10.5) 08/11/23 16:54 Total Bilirubin 0.4 mg/dL (0.15-1.2) 08/11/23 16:54 AST 20 U/L (0-32) 08/11/23 16:54 ALT 23 U/L (0-33) 08/11/23 16:54 Alkaline Phosphatase 75 U/L (35-105) 08/11/23 16:54 NT-Pro-B Natriuret Pep 150 pg/mL (0-125) H 08/11/23 16:54 Total Protein 6.3 g/dL (6.6-8.7) L 08/11/23 16:54 Albumin 3.8 g/dL (3.5-5.2) 08/11/23 16:54 Globulin 2.5 g/dL (1.3-4.6) 08/11/23 16:54 All radiology interpretation(s) finalized by discharge Discharge Plan Discharge Patient Disposition: Home Clinical Impression: Superficial thrombophlebitis Condition: Stable Prescriptions: No Action potassium chloride PO DAILY ascorbic acid (vitamin C) PO DAILY Fish, Flax andBorage Oil(Prim) 400-400-200 mg capsule 1 cap PO DAILY K2 Plus D3 1,000-100 unit-mcg tablet 1 tab PO DAILY acetaminophen 500 mg capsule 500 mg PO Q6H PRN (Reason: Pain) prednisone 20 mg tablet 20 mg PO DAILY Qty: 7 0RF [employer] PO doxycycline hyclate 100 mg capsule 100 mg PO BID Qty: 20 1RF loratadine 10 mg tablet 10 mg PO DAILY Qty: 90 1RF guaifenesin 1,200 mg tablet extended release 12hr 1,200 mg PO BID Qty: 30 2RF celecoxib 200 mg capsule 200 mg PO BID PRN (Reason: pain) Qty: 60 1RF lisinopril 20 mg tablet See Rx Instructions .ROUTE .COMPLEX Qty: 30 5RF Dose Instruction: TAKE ONE TABLET BY MOUTH EVERY DAY FOR BLOOD PRESSURE Rx Instructions: TAKE ONE TABLET BY MOUTH EVERY DAY FOR BLOOD PRESSURE albuterol sulfate 90 mcg/actuation HFA aerosol inhaler 2 inh INHALATION Q6H PRN (Reason: shortness of breath or wheezing) Qty: 8 0RF Discharge Orders: Discharge ED (Routine); Ordered 08/11/23 Ordered By: Pascale Levy Referrals: Wesley Abdul MD [Primary Care Provider] - Discharge Diet: Advance as tolerated Discharge Activity: Resume usual activity Patient Instructions: Superficial Thrombophlebitis (ED), Pain Management Activity Restrictions/Additional Instructions: As discussed, you do not have a deep vein thrombosis or DVT. I have provided you information with superficial thrombophlebitis. Please follow-up with your primary doctor return as needed for new concerning or worsening symptoms. 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
[2023-08-11 17:17] VITALS: BP 156/78; PULSE 80; RESP 14; O2SAT 98
[2023-08-11 17:19] LABS: Basophils % 0.3 %; Eosinophils # 0.1 10^3/uL (0.0-0.8); Hematocrit 38.3 % (36-47); Lymphocytes # 1.5 10^3/uL (0.8-4.8); Lymphocytes % 25.9 %; Mean Corpuscular HGB Conc 33.9 g/dL (30-55); Mean Corpuscular Hemoglobin 31.1 pg (27-33); Mean Corpuscular Volume 91.6 fl (85-98); Mean Platelet Volume 9.6 fL (7.4-10.4); Monocytes # 0.5 10^3/uL (0.2-0.9); Monocytes % 8.7 %; Neutrophils # 3.67 10^3/uL (1.8-7.7); Neutrophils % 62.6 %; Nucleated Red Blood Cells % 0 %; Platelet Count 233 10^3/cmm (157-399); Red Blood Count 4.18 10^6/uL (3.85-5.65); Red Cell Distribution Width 13.2 % (12.1-15.1); White Blood Count 5.87 10^3/uL (3.29-11.43)
[2023-08-11] MEDS: lisinopril 20 mg Tablet PO (17:28)
[2023-08-11 17:49] LABS: Alanine Aminotransferase 23 U/L (0-33); Albumin Level 3.8 g/dL (3.5-5.2); Alkaline Phosphatase 75 U/L (35-105); Anion Gap 11.4 (5-19); Aspartate Amino Transferase 20 U/L (0-32); Blood Urea Nitrogen 14 mg/dL (8-23); Calcium 8.9 mg/dL (8.5-10.5); Carbon Dioxide 29 mmol/L (22-29); Chloride 106 mmol/L (98-107); Globulin 2.5 g/dL (1.3-4.6); Glucose 98 mg/dL (65-115); NT Pro B Type Natriuretic Pept 150 pg/mL (0-125); Osmolality Calculated 294 mOsm/kg (285-295); Potassium 4.4 mmol/L (3.5-5.1); Sodium 142 mmol/L (136-145); Total Bilirubin 0.4 mg/dL (0.15-1.2); Total Protein 6.3 g/dL (6.6-8.7)
[2023-08-11 18:11] VITALS: BP 172/79; PULSE 67; RESP 18; O2SAT 97
--- NOTE | 2023-08-11 18:17 | USR_ITS ---
PROCEDURE INFORMATION: Exam: US Duplex Left Lower Extremity Veins, Limited Exam date and time: 08/11/2023 7:18 PM Age: 62 years old Clinical indication: Leg, upper and leg, lower; Prior surgery; Surgery date: <1 month; Surgery type: Umbilical hernia surgery 07/20/23; Patient HX: Lle edema, localized pain in the left lateral knee area and the left medial thigh area. ; Additional info: Edema, pain, post op TECHNIQUE: Imaging protocol: Real-time duplex ultrasound of the left extremity with 2-D higgins scale, color Doppler flow and spectral waveform analysis including responses to compression and other maneuvers (when performed) with image documentation. Limited exam focused on the left lower extremity veins. COMPARISON: MR knee LT wo con* [id number] 08/08/2019 4:38 PM FINDINGS: Left deep veins: Unremarkable. The common femoral, femoral, proximal profunda femoral, popliteal, posterior tibial and peroneal veins are patent without thrombus. Normal compressibility, augmentation response and Doppler waveforms. Superficial veins: Thrombosed superficial varicosities along the medial aspect of the thigh and knee. Saphenofemoral junction is patent without thrombus. Soft tissues: Unremarkable. US/[place] [id number] IMPRESSION: 1. No sonographic evidence of deep vein thrombosis. 2. Thrombosed superficial varicosities along the medial aspect of the thigh and knee.
[2023-08-11 18:32] VITALS: BP 156/80
[2023-08-11 21:01] VITALS: BP 156/80; PULSE 67; RESP 18; TEMP 36.8; O2SAT 97
== END 2023-08-11 21:02 | disposition home or self-care (01) ==
PROVIDERS: Emergency Provider Physician Assistant; PCP Family Medicine Adult Medicine
DX: I80.02 Phlebitis and thrombophlebitis of superficial vessels of left lower extremity (principal); I10 Essential (primary) hypertension; E78.5 Hyperlipidemia, unspecified
CPT/HCPCS: 36415; 71045; 80053; 83880; 85025; 93971; 99284

== ENCOUNTER 2023-08-19 09:38 | Outpatient (CLI) | payer BC, MEDICAID, SELFPAY ==
--- NOTE | 2023-08-19 10:00 | FL_ITS ---
WS: [id number] FL barium swallow modifd [id number] REASON FOR EXAM: Oral dysphagia FLUOROSCOPY TIME: 1min [id number] # OF SPOT FILMS: None FINDINGS: Examination was supervised by the speech therapy department. Patient was examined in the upright sitting lateral projection. Swallowing of multiple consistencies of the barium were evaluated fluoroscopically and video recorded. A detailed report of the swallowing will be rendered by the speech therapy department. IMPRESSION: Modified barium swallow as above.
== END 2023-08-19 09:39 | disposition home or self-care (01) ==
LOC: RAD 09:39
PROVIDERS: PCP Family Medicine Adult Medicine; Visit Provider Family Medicine Adult Medicine
DX: J37.1 Chronic laryngotracheitis (principal); R49.0 Dysphonia
CPT/HCPCS: 74230; 92611

== ENCOUNTER → 2023-08-24 08:36 | Outpatient (BNVA) | payer BC, MEDICAID, SELFPAY | PROVIDERS: PCP Family Medicine Adult Medicine; Visit Provider Podiatrist Foot & Ankle Surgery | DX: M25.572 Pain in left ankle and joints of left foot (principal); M76.822 Posterior tibial tendinitis, left leg | CPT/HCPCS: 73610 ==

== ENCOUNTER → 2023-09-15 16:22 | Outpatient (BNVA) | payer BC, MEDICAID, SELFPAY | PROVIDERS: PCP Family Medicine Adult Medicine; Referring Provider Podiatrist Foot & Ankle Surgery; Visit Provider Orthopaedic Surgery | DX: M48.062 Spinal stenosis, lumbar region with neurogenic claudication (principal); M51.17 Intervertebral disc disorders with radiculopathy, lumbosacral region | CPT/HCPCS: 72110 ==

== ENCOUNTER 2023-09-29 16:15 | Outpatient (CLI) | payer BC, MEDICAID, SELFPAY ==
--- NOTE | 2023-09-29 16:45 | MR_ITS ---
WS: [id number] MRI LUMBAR SPINE NONCONTRAST HISTORY: low back pain, LEFT radiculopathy. COMPARISON: None available. TECHNIQUE: Sagittal and axial multisequence imaging is submitted. Increase in the thoracic kyphosis. Posterior lumbar alignment is normal. Benign vertebral body hemangioma at L1. Disc spaces and vertebral body heights are well-preserved. Conus terminates normally at L1-2 disc level. L1-L2: Mild annular disc bulging with a very tiny RIGHT foraminal disc protrusion. There is mild effa cement of the ventral CSF. L2-L3: Mild annular disc bulging with a shallow RIGHT paracentral and foraminal disc protrusion. Mild encroachment upon the ventral thecal sac. There is mild central and bilateral subarticular recess en croachment. Slightly greater encroachment upon the traversing RIGHT L3 nerve root. L3-L4: Mild annular disc bulging and facet arthritis. No high-grade stenosis. L4-L5: Mild disc bulging and facet arthritis. No stenosis. L5-S1: Mild disc bulging with a very shallow central disc protrusion. Very minimal encroachment upon the RIGHT traversing S1 nerve root but no significant displacement. Paravertebral soft tissues are normal. IMPRESSION: 1. No high-grade central or foraminal stenosis or large disc protrusions. 2. Very shallow RIGHT foraminal disc protrusion at L1-2. 3. L2-3: Shallow RIGHT paracentral and RIGHT foraminal disc protrusion with minimal encroachment upo n the ventral thecal sac and the traversing RIGHT L3 nerve root. 4. L5-S1: Shallow central disc protrusion. Minimal encroachment but no displacement on the RIGHT tra versing S1 nerve root.
== END 2023-09-29 16:16 | disposition home or self-care (01) ==
LOC: RAD 16:15
PROVIDERS: PCP Family Medicine Adult Medicine; Visit Provider Orthopaedic Surgery
DX: M51.17 Intervertebral disc disorders with radiculopathy, lumbosacral region (principal)
CPT/HCPCS: 72148

== ENCOUNTER 2023-11-17 11:32 | Outpatient (CLI) | payer OTHER, MEDICARE, SELFPAY | END 2023-11-17 11:33 | disposition home or self-care (01) | LOC: SPT 11:33 | PROVIDERS: PCP Family Medicine Adult Medicine; Visit Provider Podiatrist Foot & Ankle Surgery | DX: Z46.89 Encounter for fitting and adjustment of other specified devices (principal); M76.822 Posterior tibial tendinitis, left leg | CPT/HCPCS: L3030 ==

== ENCOUNTER → 2023-12-29 10:00 | Outpatient (BNVA) | payer MEDICAID, SELFPAY | PROVIDERS: PCP Family Medicine Adult Medicine; Visit Provider Family Medicine Adult Medicine | DX: E78.5 Hyperlipidemia, unspecified (principal); I10 Essential (primary) hypertension | CPT/HCPCS: 80053; 80061 ==

== ENCOUNTER → 2024-01-13 10:13 | Outpatient (BNVA) | payer MEDICAID, SELFPAY | PROVIDERS: PCP Family Medicine Adult Medicine; Visit Provider Podiatrist Foot & Ankle Surgery | DX: M76.822 Posterior tibial tendinitis, left leg; M76.62 Achilles tendinitis, left leg; M92.62 Juvenile osteochondrosis of tarsus, left ankle | CPT/HCPCS: 99214 ==

== ENCOUNTER 2024-03-11 09:00 | Day surgery (SDC) | payer MEDICARE, OTHER, SELFPAY ==
[2024-03-11] VITALS (11 sets, daily range): BP systolic 125–191; BP diastolic 62–97; PULSE 51–71; RESP 16–18; TEMP 36.1–36.2; O2SAT 92–98; BMI 37.8
[2024-03-11] MEDS: sodium chloride 0.9% 1,000 ML 30 ML IV (09:32)
[2024-03-11] MEDS: gabapentin 300 mg Capsule PO (09:33)
[2024-03-11] MEDS: CELEcoxib 200 mg Capsule 400 MG PO (09:33)
--- NOTE | 2024-03-11 09:49 | ANES.PREANE2 ---
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 Operation Date: 03/11/24 10:25 Proposed Procedures p Achilles Tendon Repair(Left) - Terry Sanchez DPM s Osteotomy with exostectomy left calcaneus(Left) - MALORIE Cassidy Gastrocnemius Recession(Left) - Terry Sanchez DPM Familial anesthetic complications: None Was Beta Ann taken within 24 hours: N/A Was Clonidine taken within 24 hours: N/A Last intake: Intake Last Liquid Date 03/10/24 Last Solid Date 03/10/24 Social No alcohol and No tobacco Exam alert, oriented x 3, clear to auscultation bilaterally and regular rate & rhythm Airway Mallampati: Class III Dentition: full CV/HEM Hypertension Metabolic Hyperlipidemia and Morbid Obesity Anesthetic Plan ASA status: 2 Anesthesia: General and Regional (specify below) Risk of > 500 ml blood loss (7ml/kg in children): No Medications/Allergies Home Medications Medication Instructions Recorded Confirmed Last Taken Type acetaminophen 500 mg capsule 500 mg PO Q6H PRN Pain 05/10/20 03/10/24 06/03/21 History 2000 sole supports #1 ea 10/14/23 01/13/24 Unknown Rx aspirin 81 mg PO 1XD 11/05/23 03/10/24 03/08/24 History celecoxib 200 mg capsule 200 mg PO BID pain #180 caps 12/15/23 03/10/24 03/10/24 Rx magnesium oxide 500 mg PO DAILY 12/29/23 03/10/24 03/10/24 History multivitamin 1 tab PO DAILY 12/29/23 03/10/24 03/10/24 History atorvastatin 40 mg tablet 40 mg PO DAILY cholesterol/fats 12/30/23 03/10/24 03/10/24 Rx #90 tabs lisinopril 20 mg tablet 20 mg PO DAILY 03/10/24 03/10/24 03/10/24 History Allergies Allergy/AdvReac Type Severity Reaction Status Date / Time adhesive tape Allergy ALGY-Rash Verified 03/10/24 10:29 Androgenic Anabolic Steroid Allergy Unknown Verified 03/10/24 10:29 latex Allergy ALGY-Rash Verified 03/10/24 10:29 niacin Allergy hives Verified 01/13/24 10:15 Current Medications Generic Name Dose Route Start Last Admin Trade Name Freq PRN Reason Stop Dose Admin Sodium Chloride 1,000 mls @ 30 mls/hr 03/11/24 09:15 03/11/24 09:32 Sodium Chloride 0.9% IV 03/12/24 09:14 30 mls/hr .Q24H LINDA Administration PFSH Anesthesia Medical History Varicose veins of both lower extremities Superficial thrombophlebitis Chronic hoarseness Ventral hernia Sacroiliac joint pain Chronic left shoulder pain Hypertension, essential, benign Anxiety and depression GERD (gastroesophageal reflux disease) Well adult exam Allergic rhinitis due to allergen Hernia, hiatal Dyslipidemia (high LDL; low HDL) Mass of soft tissue of abdomen Thoracic outlet syndrome Left carpal tunnel syndrome 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 Argentina [employer] airway enlargement History of carpal tunnel surgery of right wrist 1993 Internal impingement of right shoulder 2003 [place], [place] Tear of medial meniscus of right knee 09/14/2019 Right medial meniscectomy Family History Mother Lymphoid leukemia Diabetes Hypertension Father , Age 73 CAD (coronary artery disease) Myocardial infarction Stroke Hypertension Sister Hypertension Brother Hypertension Social History Smoking and tobacco/nicotine status: never used tobacco/nicotine Alcohol intake: never Substance/Drug Use: never Household members: spouse Marital status: Current occupational status: employed Current occupation: Caregiver Data Anesthesia Cardiac Studies: No Data to Display
--- NOTE | 2024-03-11 10:28 | ANES.PROC ---
Anesthesia Procedures Procedure/Date: 03/11/24 Nerve Block ^: Nerve Block 1: Main Anesthesia: general anesthesia Time Out Performed: Yes Consent: requested by attending/covering physician, from patient, from other, risks and benefits reviewed and patient agrees to proceed Nerve block location: popliteal (L) Anesthesia monitors applied: pulse oximetry, EKG, BP cuff and oxygen Nerve block position: supine Anesthetic Used: ropivicaine 0.5% (30 ml) and with decadron (4 mg - patient aware of decadron in block) Ultrasound used to: recognize landmarks Nerve Stimulator Used?: No Interscalene/Femoral BLK: 4 stimuplex 21 g needle used for position and inplane approach, visualize local anesthetic spread and no vascular puncture identified Injection: neg aspiration of heme Patient Tolerated Procedure: well Complications: none
--- NOTE | 2024-03-11 11:07 | P.HPUD_ITS ---
Surgery/Procedure H&P Update DATE OF PROCEDURE: March 11, 2024 DATE H&P PERFORMED: 03/11/24 H&P UPDATE INFORMATION: I have reviewed H&P completed within last 30 days, I have examined patient prior to procedure, No changes to prior documentation and H&P is in [facility] [place] EMR on date indicated PREOP DIAGNOSIS: Left Achilles tendinosis and Pablo's deformity. PLANNED PROCEDURE: Operation Date: 03/11/24 10:25 Proposed Procedures p Achilles Tendon Repair(Left) - Terry Sanchez DPM s Osteotomy with exostectomy left calcaneus(Left) - MALORIE Cassidy Gastrocnemius Recession(Left) - Terry Sanchez DPM
[2024-03-11] MEDS: ceFAZolin 2,000 mg SDV 2000 MG IVP (11:35)
--- NOTE | 2024-03-11 12:45 | P.BOP_ITS ---
Date of Procedure: 10/23/23 Surgeon: Terry Sanchez DPM [employer] Supervisor(s): Brandy Guido Procedure(s) performed: Pablo's resection and Achilles repair, left. 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
--- NOTE | 2024-03-11 12:46 | P.OP_ITS ---
Operative Report Date of procedure: March 11, 2024 Pre-op diagnosis: Pablo's deformity left heel. Calcaneal spur, left. Left Achilles tendinosis. Post-op diagnosis: Pablo's deformity left heel. Calcaneal spur, left. Left Achilles tendinosis. Procedure done: 1) Left Achilles tendon repair. CPT code 46560 2) Exostectomy of left calcaneus. CPT code 10433 Implants: Arthrex Achilles speed bridge with ripstop 3-0 Vicryl, 4-0 Vicryl, 4-0 nylon Surgeon: Terry Sanchez DPM Char Filter Tank Tender: Brandy Guido Estimated blood loss: 2 34 IV fluids: See intraoperative documentation Urine output: 0 Complications: No complications Brief History: Ms. 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 This has been ongoing for years. Limits what type of shoe gear she can wear. She typically wears open back shoes and at this point this is not alleviating her pain she has tried stretching and loading exercises as well as topical and oral anti- inflammatories, activity modifications without relief. She has a history of right Pablo's resection and Achilles tendon debridement with a uneventful recovery after that surgery and states that she would like to have the left one fixed this March. I reviewed at length with the patient, the risks, potential complications, benefits, alternatives, expectations, and typical outcomes associated with the surgery. The risks and potential complications were explained in detail, including but not limited to infection, wound dehiscence or soft tissue complications, bleeding and hematoma, chronic edema, neuritis or nerve damage producing numbness or chronic pain, CRPS, failure to relieve pain or worsening pain, thick / painful / unsightly scar, limited motion / stiffness, malposition, delayed union, malunion, or nonunion, fracture, reaction to implants, anesthetic complications, venous thromboembolism, and deformity recurrence. I discussed the notion of no regrets with the patient as it pertains to complications and outcomes. The patient seemed to understand the nature of the proposed care and required convalescence. They asked appropriate questions, answered to their satisfaction. They are aware no guarantees can be made as to a satisfactory outcome and they understand there may be other possible unforeseen complications or outcomes not listed here that will be treated accordingly if they arise. There were no written or implied guarantees given to the patient. They gave informed consent to proceed. Procedure: Anesthesia and Positioning: After obtaining informed consent, the patient was taken to the operating room and placed under general anesthesia with preoperative left popliteal block per anesthesia. The patient was positioned prone on the operating table with appropriate padding under the bony prominences. 2. Preparation and Drape: The left lower extremity was prepped and draped in the usual sterile fashion, ensuring that the operative site was adequately exposed. 3. Incision: A curvilinear incision was made medial to the midline over the Achilles tendon, extending from the level of the superior aspect of the calcaneal tuberosity proximally towards the mid-calf. 4. Exposure: The subcutaneous tissue was carefully dissected to expose the Achilles tendon and the underlying Pablo's deformity. Care was taken to protect the sural nerve and lesser saphenous vein. 5. Pablo's Resection: The prominent bony exostosis (Pablo's deformity) was identified. Using an osteotome and a rongeur, the exostosis was carefully resected, and the area was smoothed with a bone rasp. 6. Achilles Tendon Repair: Inspection of the Achilles tendon revealed mid substance tearing and mucoid degeneration with thickening and disorganized collagen fibers that were sharply debrided. The degenerated portion of the tendon was debrided back to healthy tissue. The Achilles tendon was then repaired using the Achilles SpeedBridge technique. This involved placing suture anchors at the calcaneal insertion of the Achilles tendon, passing FiberWire sutures through the tendon, and securing the tendon back to its anatomical posi tion with a knotless bridging construct to allow for optimal tensioning and footprint coverage. 7. Closure: The wound was irrigated with sterile saline. The subcutaneous tissue and skin were then closed in layers using absorbable sutures for the subcutaneous layer and 4-0 nylon for the skin closure. A sterile dressing was applied. 8. Postoperative Care: The patient's leg was placed in a multilayer compressive posterior splint in equinus position to immobilize the ankle and allow for tendon healing.
[2024-03-11] MEDS: fentaNYL 50 mcg/mL INJ 2mL IVP (12:50)
[2024-03-11] MEDS: HYDROcodone-acetaminophen 10-325 mg Tablet 1 TAB PO (13:45)
--- NOTE | 2024-03-11 14:05 | ANE.PACU2 ---
Inpatient post-anesthesia follow up: Airway intact: Yes Vital signs: Temperature 97.1 F Pulse Rate 51 Respiratory Rate 18 Blood Pressure 133/62 Pulse Oximetry 92 Oxygen Delivery Me thod Room Air Oxygen Flow Rate Fraction of Inspir ed Oxygen Hydration adequate: Yes Nausea and vomiting: No Pain level: 1 Mental status: Baseline
== END 2024-03-11 14:07 | disposition home or self-care (01) ==
PROVIDERS: PCP Family Medicine Adult Medicine; Visit Provider Podiatrist Foot & Ankle Surgery
PROC: (CPT 27650; principal; 2024-03-11 10:15)
PROC: (CPT 28300; 2024-03-11 10:15)
PROC: (CPT 27687; 2024-03-11 10:15)
DX: M76.62 Achilles tendinitis, left leg (principal); M92.62 Juvenile osteochondrosis of tarsus, left ankle; M77.32 Calcaneal spur, left foot; I10 Essential (primary) hypertension; E78.5 Hyperlipidemia, unspecified; E66.01 Morbid (severe) obesity due to excess calories; Z68.37 Body mass index [BMI] 37.0-37.9, adult
CPT/HCPCS: 27654; 28120; C1713; J0690; J1100; J2405; J2704; J2710; J2795; J3010; J3490; J7030

== ENCOUNTER → 2024-03-29 10:05 | Outpatient (BNVA) | payer MEDICARE, OTHER, SELFPAY | PROVIDERS: PCP Family Medicine Adult Medicine; Visit Provider Family Medicine Adult Medicine | DX: I10 Essential (primary) hypertension (principal) | CPT/HCPCS: 80053 ==

== ENCOUNTER → 2024-03-30 11:56 | Outpatient (BNVA) | payer MEDICARE, OTHER, SELFPAY | PROVIDERS: PCP Family Medicine Adult Medicine; Visit Provider Podiatrist Foot & Ankle Surgery | DX: S83.206A Unspecified tear of unspecified meniscus, current injury, right knee, initial encounter (principal); X58.XXXA Exposure to other specified factors, initial encounter; M17.11 Unilateral primary osteoarthritis, right knee | CPT/HCPCS: 73562; 99024; 99214 ==

== ENCOUNTER → 2024-04-21 14:40 | Outpatient (BNVA) | payer MEDICARE, OTHER, SELFPAY | PROVIDERS: PCP Family Medicine Adult Medicine; Visit Provider Podiatrist Foot & Ankle Surgery | DX: M92.62 Juvenile osteochondrosis of tarsus, left ankle (principal); Z98.890 Other specified postprocedural states | CPT/HCPCS: 99024 ==

== ENCOUNTER 2024-04-28 08:00 | Outpatient (CLI) | payer MEDICARE, OTHER, SELFPAY ==
--- NOTE | 2024-04-28 08:00 | IR_ITS ---
WS: [id number] Right knee arthrogram for MRI, 04/28/2024 Clinical Data: right knee pain Comparison: None. Fluoroscopy time: 0min [id number] # of spot films: 6 Findings: The lateral aspect of the right knee was prepared in the usual manner with alcohol disinfectant. Then a 22-gauge needle was used to insert a 5 mL of 1% Xylocaine. Then a mixture of iodinated contrast, M RI contrast and 20 mL of saline were injected into the knee joint without complication. IR/[place] [id number] Impression: Satisfactory right knee arthrogram for MRI.
--- NOTE | 2024-04-28 08:10 | MR_ITS ---
WS: [id number] MR RIGHT KNEE ARTHROGRAM INDICATION: RIGHT knee pain. TECHNIQUE: Sagittal PD, sagittal PD fat-sat, sagittal PD ACL, coronal T1 and T2 imaging. T1 fat satur ation imaging after intra-articular administration of gadolinium. FINDINGS: Distal quadriceps and patella tendons are intact. Hypertrophic patella. Small suprapatellar effusion. Grade 3 moderate to advanced chondromalacia patella. Medial and lateral patellar retinacul um appear intact. Lobulated popliteal cyst measuring 4.7 x 2.3 cm. Chronic thinning of the medial and lateral meniscus. Presumed postoperative changes partial medial meniscectomy with chronic thinning a nd blunting. Peripheral extrusion of the medial meniscus. Peripheral extrusion of the lateral meniscus. Chronic in trasubstance signal abnormality in the lateral meniscus. No acute appearing meniscal tears. Grade III chondromalacia medial and lateral joint compartments. Medial and lateral collateral ligaments appear intact. Moderate to advanced tricompartmental arthritis. MR/MR knee RT wo/w con [id number] IMPRESSION: 1. Moderate to advanced tricompartmental arthritis. 2. Grade III chondromalacia patella. 3. Prior postoperative changes partial medial meniscectomy with blunting of th e medial meniscus. Peripheral extrusion of the medial and lateral meniscus. 4. Grade III chondromalacia with moderate to advanced joint space narrowing me dial joint compartment. 5. Mucoid degeneration of the ACL which appears intact. Normal PCL. 6. Lobulated popliteal cyst 4.7 x 2.2 cm
== END 2024-04-28 08:07 | disposition home or self-care (01) ==
PROVIDERS: PCP Family Medicine Adult Medicine; Visit Provider Nurse Practitioner
DX: M17.11 Unilateral primary osteoarthritis, right knee (principal); M94.261 Chondromalacia, right knee; M71.21 Synovial cyst of popliteal space [Baker], right knee
CPT/HCPCS: 27369; 73723; 77002

== ENCOUNTER → 2024-05-09 10:09 | Outpatient (BNVA) | payer MEDICARE, OTHER, SELFPAY | PROVIDERS: PCP Family Medicine Adult Medicine; Visit Provider Nurse Practitioner | DX: M17.11 Unilateral primary osteoarthritis, right knee (principal); M22.41 Chondromalacia patellae, right knee; M71.21 Synovial cyst of popliteal space [Baker], right knee; Z68.38 Body mass index [BMI] 38.0-38.9, adult | CPT/HCPCS: 99214 ==

== ENCOUNTER → 2024-05-10 14:45 | Outpatient (BNVA) | payer MEDICARE, OTHER, SELFPAY | PROVIDERS: PCP Family Medicine Adult Medicine; Visit Provider Podiatrist Foot & Ankle Surgery | DX: M92.62 Juvenile osteochondrosis of tarsus, left ankle (principal); Z98.890 Other specified postprocedural states | CPT/HCPCS: 99024 ==

== ENCOUNTER 2024-05-19 13:05 | Outpatient (RCR) | payer MEDICARE, OTHER, SELFPAY | END 2024-06-09 23:59 | disposition home or self-care (01) | LOC: SPT 13:05 | PROVIDERS: PCP Family Medicine Adult Medicine; Visit Provider Podiatrist Foot & Ankle Surgery | DX: Z98.890 Other specified postprocedural states (principal) | CPT/HCPCS: 97110; 97161 ==

== ENCOUNTER → 2024-05-25 11:39 | Outpatient (BNVA) | payer MEDICARE, OTHER, SELFPAY | PROVIDERS: PCP Family Medicine Adult Medicine; Visit Provider Nurse Practitioner | DX: R05.9 Cough, unspecified (principal) | CPT/HCPCS: 87400; 87420; 87426 ==

== ENCOUNTER → 2024-06-09 13:45 | Outpatient (BNVA) | payer MEDICARE, OTHER, SELFPAY | PROVIDERS: PCP Family Medicine Adult Medicine; Visit Provider Podiatrist Foot & Ankle Surgery | DX: M92.62 Juvenile osteochondrosis of tarsus, left ankle (principal); Z98.890 Other specified postprocedural states | CPT/HCPCS: 99024 ==

== ENCOUNTER → 2024-06-15 07:58 | Outpatient (BNVA) | payer MEDICARE, OTHER, SELFPAY | PROVIDERS: PCP Family Medicine Adult Medicine; Visit Provider Nurse Practitioner | DX: M17.11 Unilateral primary osteoarthritis, right knee (principal); Z68.38 Body mass index [BMI] 38.0-38.9, adult | CPT/HCPCS: 20610; 99213; J7326 ==

== ENCOUNTER → 2024-09-16 07:57 | Outpatient (BNVA) | payer MEDICARE, OTHER, SELFPAY | PROVIDERS: PCP Family Medicine Adult Medicine; Visit Provider Nurse Practitioner | DX: M17.11 Unilateral primary osteoarthritis, right knee (principal); Z68.38 Body mass index [BMI] 38.0-38.9, adult | CPT/HCPCS: 20610; 99213; J1100; J2795; J3301 ==

== ENCOUNTER 2024-10-04 13:23 | Emergency (ER) | payer MEDICARE, OTHER, SELFPAY ==
[2024-10-04 13:26] VITALS: BP 149/81; PULSE 87; RESP 16; TEMP 36.4; O2SAT 96; BMI 37.8
--- NOTE | 2024-10-04 13:37 | XRR_ITS ---
PROCEDURE INFORMATION: Exam: XR Right Knee Exam date and time: 10/04/2024 1:53 PM Age: 63 years old Clinical indication: Right; RT knee pain no trauma TECHNIQUE: Imaging protocol: Radiologic exam of the right knee. Views: 3 views. COMPARISON: MR knee RT wo/w con [id number] 04/28/2024 8:26 AM FINDINGS: Bones/joints: Mild arthritis medial compartment. Small enthesophytes from the patella and anterior tibial tuberosity. Otherwise, unremarkable. Soft tissues: Normal. XR/XR knee RT 3V* [id number] IMPRESSION: No acute findings.
[2024-10-04 13:55] VITALS: PULSE 80; O2SAT 97
--- NOTE | 2024-10-04 14:18 | ED_ITS ---
HPI - Extremity Problem General: Chief complaint: Extremity Injury, Lower Stated complaint: rt knee inj Time Seen by Provider: 10/04/24 13:38 Source: patient Mode of arrival: ambulatory Limitations: no limitations History of Present Illness: 63 year old female presents to the ER co mplaining of right knee pain. Patient states this started 3 days ago and has progressively worsened over time. She states at home she has been elevating her leg and has taken Tylenol to help with the pain but it has not gotten any better. She describes the pain as sharp and shooting. Her pain is 6/10. Patient reports the pain behind the knee has radiated to her calf and ankle. She states she is having a hard time to bear weight on the leg when walking. Patient denies any fever, chills, shortness of breath, chest pain, or abdominal pain. MD Complaint: extremity pain (R leg) Onset (ago): day(s) Pain Consistency: constant Location: right and lower extremity (R. leg) Severity scale (1-10): 6 Quality: sharp Radiation: distal Relieving factors: nothing Exacerbating factors: range of motion, weight bearing and walking Associated symptoms: Reports no associated symptoms; Deny chest pain or fever(s) Related Data Home Medications ?Medication ?Instructions ?Recorded ?Confirmed acetaminophen 500 mg capsule 500 mg PO Q6H PRN Pain 10/04/24 celecoxib 200 mg capsule 200 mg PO BID 10/04/2410/04 Previous Rx's ?Medication ?Instructions ?Recorded lisinopril 20 mg tablet 20 mg PO DAILY #90 tabs 10/0 10/31 fluticasone propionate 50 2 spray intranasal BID #16 g adiel 05/25/24 mcg/actuation nasal spray,suspension (Flonase Allergy Relief) atorvastatin 40 mg tablet 40 mg PO DAILY cholesterol/f ats 08/11/24 #90 tabs apixaban 5 mg tablet (Eliquis) 5 mg PO BID #74 tabs Allergies Allergy/AdvReac Type Severity Reaction Status Date / Time adhesive tape Allergy ALGY-Rash Verified 10/04/24 13:26 Androgenic Anabolic Steroid Allergy Unknown Verified 10/04/24 13:26 latex Allergy ALGY-Rash Verified 10/04/24 13:26 niacin Allergy hives Verified 10/04/24 13:26 Review of Systems Const: Denies: fever(s), chills or body aches Card: Denies: chest pain, palpitations or irregular heart rhythm Resp: Denies: dyspnea GI: Denies: abdominal pain or nausea Musc: Reports: extremity pain and joint pain; Denies: back pain, joint redness or joint warmth Neuro: Denies: numbness in extremities, weakness in extremities or sensory changes PFSH ED PFSH: Medical History BMI 38.0-38.9,adult Melisa sign present in right knee Primary osteoarthritis of right knee Right medial knee pain Varicose veins of both lower extremities Superficial thrombophlebitis Chronic hoarseness Ventral hernia Sacroiliac joint pain Chronic left shoulder pain Hypertension, essential, benign Anxiety and depression GERD (gastroesophageal reflux disease) Well adult exam Allergic rhinitis due to allergen Hernia, hiatal Dyslipidemia (high LDL; low HDL) Mass of soft tissue of abdomen Thoracic outlet syndrome Left carpal tunnel syndrome 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 [place] Jameson Chemical airway enlargement History of carpal tunnel surgery of right wrist 1993 Internal impingement of right shoulder 2003 [place], [place] Tear of medial meniscus of right knee 09/14/2019 Right medial meniscectomy Family History Mother Lymphoid leukemia Diabetes Hypertension Father , Age 73 CAD (coronary artery disease) Myocardial infarction Stroke Hypertension Sister Hypertension Brother Hypertension Social History Smoking and tobacco/nicotine status: never used tobacco/nicotine Alcohol intake: never Substance/Drug Use: never Household members: spouse Marital status: Current occupational status: employed Current occupation: Caregiver Physical Exam Const: COMMON NORMALS: no acute distress, patient oriented x3, no limitations, alert and well nourished GENERAL APPEARANCE: cooperative NUTRITIONAL APPEARANCE: overweight Resp: COMMON NORMALS: normal respiratory effort and clear to auscultation bilaterally AUSCULTATION: clear to auscultation bilaterally Cardio: COMMON NORMALS: regular rate and regular rhythm RATE: regular rate RHYTHM: regular rhythm Extremity: COMMON NORMALS: capillary refill normal and no clubbing, cyanosis or edema GENERAL: Yes normal exam except as noted RIGHT LOWER EXTREMITY: Yes knee joint and Yes lower leg OTHER: TTP R posterior knee/calf; NV intact; no erythema/warmth Neuro: COMMON NORMALS: patient oriented x3 SENSORIUM/ORIENTATION: Yes alert Course Vital Signs: Vital signs: Vital Signs Temperature 97.5 F L 10/04/24 13:26 Pulse Rate 75 10/04/24 15:07 Respiratory Rate 16 10/04/24 13:26 Blood Pressure 148/91 10/04/24 15:07 Pulse Oximetry 96 10/04/24 15:07 Oxygen Delivery Me thod Room Air 10/04/24 15:07 MDM - Extremity (Nontraumatic) Medical Decision Making Spoke to johnny Small. Patient has a large superficial thrombophlebitis involving her lesser saphenous vein. He does state this thrombus was approximately 7 inches long. Due to length of thrombus, UpToDate does recommend anticoagulation for [address] on Eliquis. She states she has an upcoming appointment with PCP early next month. Return to ED prec autions discussed. Medical Records I reviewed the patient's medical records. Lab Data I reviewed the patient's lab results. Radiology Impressions Knee X-Ray 10/04/24 13:37 IMPRESSION: No acute findings. All radiology interpretation(s) finalized by discharge Discharge Plan Discharge Patient Disposition: Home Clinical Impression: Superficial thrombosis of right lower extremity Condition: Stable Prescriptions: New Eliquis 5 mg tablet 5 mg PO BID Qty: 74 0RF Rx Instructions: Take two tabs (10mg) PO BID x 7 days then one tab (5mg) PO BID thereafter No Action acetaminophen 500 mg capsule 500 mg PO Q6H PRN (Reason: Pain) fluticasone propionate [Flonase Allergy Relief] 50 mcg/actuation spray,suspension 2 spray intranasal BID Qty: 16 0RF Rx Instructions: administer into each nostril lisinopril 20 mg tablet 20 mg PO DAILY Qty: 90 1RF Rx Instructions: TAKE ONE TABLET BY MOUTH EVERY DAY FOR BLOOD PRESSURE atorvastatin 40 mg tablet 40 mg PO DAILY Qty: 90 1RF celecoxib 200 mg capsule 200 mg PO BID Discharge Orders: Discharge ED (Routine); Ordered 10/04/24 Ordered By: Ángela Mayer Referrals: Darryl Sommer MD [Primary Care Provider] - Patient Instructions: Superficial Thrombophlebitis (ED), Thrombophlebitis - Superficial Activity Restrictions/Additional Instructions: As we discussed, you were found to have a large superficial blood clot in your lesser saphenous vein. As we discussed, usually superficial thrombus do not require treatment with anticoagulation however some patients will benefit from anticoagulation if the superficial thrombus is large for close to a deep vein junction. In your case I think you would benefit from anticoagulation for minimum of 45 days. I have called you in a prescription for Eliquis to your pharmacy on file. I would like you to follow-up with your primary care provider in a few weeks for reevaluation. You may alternate ice and heat on the extremity and you may take [id number] analgesics to help with discomfort. You need to return to the emergency department for worsening leg pain, swelling, severe chest pain, shortness of breath, difficulty breathing, or any other concerns you may have. Print Language: Jamaican Coding Level of Care Code ED Expanded Function Dental Assistant for Twan Mcpherson
--- NOTE | 2024-10-04 14:42 | USCV_ITS ---
Eliud Ashley Age: 63 Gender: F : 1960 Exam Date: 10/04/2024 15:15 Ordering Phys: Ángela Mayer Technologist: CT Exam Location: [facility] [place] Indication: PROCEDURES: Venous duplex imaging was performed in only the right lower extremity. On the right side, the common femoral, superficial femoral, profunda femoral, popliteal, posterior tibial, greater saphenous veins and the peroneal trunk were identified and interrogated in the standard fashion. These veins were found to be easily compressible with spontaneous blood flow. No evidence of insufficiency or thrombus noted. FINDINGS: no dvt thrombus in ssv CONCLUSIONS Superficial thrombus in the RIGHT lesser sapheneous in the proximal and mid segments. This corresponds to the area of pain No DVT right lower extremity Notified Ángela JANE at time of exam 10/04/24 Salvador Gonzales MD (Electronically Signed) Final Date: 04 October 2024 15:47 S
[2024-10-04 15:07] VITALS: BP 148/91; PULSE 75; O2SAT 96
[2024-10-04 16:20] VITALS: BP 148/93; PULSE 70; O2SAT 95
== END 2024-10-04 16:21 | disposition home or self-care (01) ==
PROVIDERS: Emergency Provider Physician Assistant; PCP Family Medicine
DX: I82.811 Embolism and thrombosis of superficial veins of right lower extremity (principal); I10 Essential (primary) hypertension; E78.5 Hyperlipidemia, unspecified; M25.561 Pain in right knee
CPT/HCPCS: 73562; 93971; 99284

== ENCOUNTER → 2024-10-11 10:04 | Outpatient (BNVA) | payer MEDICARE, OTHER, SELFPAY | PROVIDERS: PCP Family Medicine; Visit Provider Family Medicine | DX: E78.5 Hyperlipidemia, unspecified (principal) | CPT/HCPCS: 80053; 80061; 85025 ==

== ENCOUNTER 2024-10-25 12:43 | Outpatient (CLI) | payer MEDICARE, OTHER, SELFPAY ==
--- NOTE | 2024-10-25 12:45 | US_ITS ---
WS: [id number] ULTRASOUND SOFT TISSUES RIGHT lower back. HISTORY: RIGHT side mid back COMPARISON: None available. TECHNIQUE: 2-D and color Doppler imaging is submitted. In the area of interest there is a slightly hyperechoic mass within the subcutaneous layer measuring 1.7 x 3.8 x 1.0 cm. This is most consistent with a lipoma. There is no increased vascularity. No additional abnormality. US/US soft tissue/extremity 26130 IMPRESSION: Subcutaneous lipoma corresponds to the palpable nodule along the RIGHT back.
--- NOTE | 2024-10-25 14:30 | USCV_ITS ---
Ashley Kline Age: 63 Gender: F : 1960 Exam Date: 10/25/2024 12:54 Ordering Phys: Darryl Sommer MD Technologist: [place] Exam Location: [facility] [place] Indication: H/o thrombus in Rt SSV HISTORY: H/o thombus in SSV PROCEDURES: Comparison:. 10/04/24 Venous duplex imaging was performed in only the right lower extremity. The following venous structures were evaluated: common femoral vein, profunda vein, proximal portion of the greater saphenous vein, superficial femoral vein, and the popliteal vein. In addition, the posterior tibial and peroneal trunk were evaluated. Serial compression, augmentation maneuvers, and spectral Doppler flow evaluation were performed. FINDINGS: Chronic appearing superficial thrombus in mid to proximal calf SSV. No improvement. No DVT. CONCLUSIONS No DVT right lower extremity. Chronic SSV thrombus.No progression or improvement. Dr. Judi Marquez DO (Electronically Signed) Final Date: 25 October 2024 15:08 S
== END 2024-10-25 12:44 | disposition home or self-care (01) ==
PROVIDERS: PCP Family Medicine; Visit Provider Family Medicine
DX: I82.811 Embolism and thrombosis of superficial veins of right lower extremity (principal); M79.89 Other specified soft tissue disorders
CPT/HCPCS: 76882; 93971

== ENCOUNTER → 2024-10-28 08:29 | Outpatient (BNVA) | payer MEDICARE, OTHER, SELFPAY | PROVIDERS: PCP Family Medicine; Referring Provider Family Medicine; Visit Provider Nurse Practitioner Family | DX: L21.8 Other seborrheic dermatitis (principal); D17.21 Benign lipomatous neoplasm of skin and subcutaneous tissue of right arm; D17.1 Benign lipomatous neoplasm of skin and subcutaneous tissue of trunk; D17.23 Benign lipomatous neoplasm of skin and subcutaneous tissue of right leg; R20.9 Unspecified disturbances of skin sensation; R20.8 Other disturbances of skin sensation; L82.1 Other seborrheic keratosis; D18.01 Hemangioma of skin and subcutaneous tissue; L91.8 Other hypertrophic disorders of the skin; R23.8 Other skin changes; L29.89 Other pruritus; D48.5 Neoplasm of uncertain behavior of skin; L57.0 Actinic keratosis | CPT/HCPCS: 11102; 17000; 17110; 99204 ==

== ENCOUNTER → 2024-11-30 09:41 | Outpatient (BNVA) | payer MEDICARE, OTHER, SELFPAY | PROVIDERS: PCP Family Medicine; Visit Provider Dermatology | DX: D17.1 Benign lipomatous neoplasm of skin and subcutaneous tissue of trunk (principal); R20.8 Other disturbances of skin sensation; C44.319 Basal cell carcinoma of skin of other parts of face | CPT/HCPCS: 13132; 17311; 99213 ==

== ENCOUNTER 2025-02-13 15:09 | Emergency (ER) | payer MEDICARE, OTHER, SELFPAY ==
--- OUTSIDE RECORDS SUMMARY | 2025-02-13 15:17 | XMS_ITS | Patient Health Record ---
Author Organization [facility] Address [address] [place], [place] [id number] Care Team Providers Care Structural Iron Worker Name Role Phone Butch SOSA, Conor Primary Care Provider [phone] Orlando SOSA, Rosalino Unavailable [phone] Axel Manjarrez MD Unavailable Unavailable Allergies Allergen (clinical drug ingredient) Drug/Non Drug Allergy documented on EMR Reaction Allergy Type Onset Date Status environmental (uncoded) Unknown Allergy Active Xopenex Unknown Drug Allergy Active Reason For Referral No Information Medications Medication SIG (Take, Route, Frequency, Duration) Notes Start Date End Date Status Tylenol Extra Strength 500 mg 2 tabs po orally Q6H prn pain Active Ventolin HFA 90 mcg/inh 2 puffs inhaled every 6 hours Active Social History Tobacco Use: Social History Observation Description Date Details (start date - stop date) Never Smoker NA - NA alcohol Question Answer Notes Did you have a drink containing alcohol in the p ast year? No Points 0 Interpretation Negative Tobacco use: Question Answer Notes : nonsmoker Problems Problem Type SNOMED Code ICD Code Onset Dates Problem Status W/U Status Risk Notes Problem Hypersomnia (58694900) Hypersomnia, unspecified (G47.10) Active confirmed Problem Cervical spondylosis without myelopathy (618221112) Spondylosis without myelopathy or radiculopathy, cervical region (M47.812) Active confirmed Problem Cervicalgia (98650773) Cervicalgia (M54.2) Active confirmed Problem Long-term current use of drug therapy (373229317) Other fdc (current) drug therapy (Z79.899) Active confirmed Plan Of Treatment No Information Insurance Providers Payer Name Payer Address Payer Phone Subscriber Number Group Number Insured Name Patient Relationship to Insured Coverage Start Date Coverage End Date [facility] [address] [place] [phone] [id number] Ashley Kline Self - patient is the insured Medical (General) History Medical History History ICD Code Cervical disc disorder with myelopathy o f mid cervical region Neck pain Surgical History Surgery Date(Month/Year) Right car[place] release[place], 1993 Right shoulder surgery for impingment, p erformed in [place], 2003 Right heel surgery, performed in [facility] t, [place] 2005 Chemical airway enlargement, performed b y Dr. Jameson, 2010
[2025-02-13 15:46] VITALS: BP 133/84; PULSE 83; RESP 18; TEMP 36.6; O2SAT 98; BMI 37.8
[2025-02-13 16:34] LABS: Hematocrit 41.6 % (36-47); Hemoglobin 14.30 g/dL (11.27-16.99); Mean Corpuscular HGB Conc 34.4 g/dL (30-55); Mean Corpuscular Hemoglobin 30.6 pg (27-33); Mean Corpuscular Volume 88.9 fl (85-98); Nucleated Red Blood Cells % 0 %; Platelet Count 215 10^3/cmm (157-399); Red Blood Count 4.68 10^6/uL (3.85-5.65); White Blood Count 9.76 10^3/uL (3.29-11.43)
[2025-02-13 16:52] LABS: Alanine Aminotransferase 16 U/L (0-33); Albumin Level 3.9 g/dL (3.5-5.2); Alkaline Phosphatase 75 U/L (35-105); Anion Gap 20.8 (5-19); Aspartate Amino Transferase 15 U/L (0-32); Blood Urea Nitrogen 14 mg/dL (8-23); Calcium 9.7 mg/dL (8.5-10.5); Carbon Dioxide 22 mmol/L (22-29); Chloride 99 mmol/L (98-107); Creatinine Clr Calc Pharmacy 94.0967; Globulin 3.2 g/dL (1.3-4.6); Glucose 157 mg/dL (65-115); Lipase 30 U/L (13-60); Osmolality Calculated 290 mOsm/kg (285-295); Potassium 3.8 mmol/L (3.5-5.1); Sodium 138 mmol/L (136-145); Total Protein 7.1 g/dL (6.6-8.7)
--- NOTE | 2025-02-13 18:35 | CTR_ITS ---
PROCEDURE INFORMATION: Exam: CT Abdomen And Pelvis Without Contrast Exam date and time: 02/13/2025 7:12 PM Age: 64 years old Clinical indication: Abdominal pain; Flank; Right; Prior surgery; Surgery date: 6+ months; Surgery type: 2 csection; 2 hernia repair; Additional info: Right flank pain TECHNIQUE: Imaging protocol: Computed tomography of the abdomen and pelvis without contrast. Radiation optimization: All CT scans at this facility use at least one of these dose optimization techniques: automated exposure control; mA and/or kV adjustment per patient size (includes targeted exams where dose is matched to clinical indication); or iterative reconstruction. COMPARISON: CT abdomen pelvis w con* [id number] 06/06/2021 8:23 AM RADIATION DOSE METRICS: Total DLP (mGy-cm): 1021.13 FINDINGS: Lungs: There is subsegmental atelectasis in the lung bases. There is subpleural ground-glass opacity in the posteroinferior right lower lobe. Diaphragm: There is a moderate size sliding-type hiatal hernia. Liver: The liver is normal. Gallbladder and biliary ducts: The gallbladder is normal. There is no biliary dilation. Pancreas: The pancreas is unremarkable. Spleen: The spleen is unremarkable. Adrenal glands: The adrenal glands are unremarkable. Kidneys and ureters: The kidneys are unremarkable. No hydronephrosis or stones. No ureteral dilation. Stomach and bowel: The stomach is nondistended, limiting assessment of wall thickness. The small bowel is nondilated. There is moderate distal descending and sigmoid colonic diverticulosis without evidence of diverticulitis. Appendix: The appendix is normal. Intraperitoneal space: There is no free air or significant intraperitoneal free fluid. Vasculature: There is severe aortic atherosclerotic disease. Lymph nodes: There is no lymphadenopathy in the retroperitoneum, mesentery, pelvis or inguinal regions. Urinary bladder: The urinary bladder is unremarkable. Reproductive: There is no adnexal mass or large cyst. The uterus demonstrates a lobulated contour suggesting leiomyomas. Bones/joints: There is mild degenerative disease in the lumbar spine. There is mild degenerative disease of both hips. The bony pelvis is intact. Soft tissues: There is diastasis of the rectus abdominis muscles. There is herniation of fat into the right rectus sheath with mild posterior displacement of the right rectus abdominis muscle. There is a small fat containing left paramidline infraumbilical ventral hernia. Ventral hernias are similar to 06/06/2021. CT/CT kidney stone [id number] IMPRESSION: 1. No obstructive uropathy. No stones. 2. Subpleural opacity in the posteroinferior right lower lobe. Nonspecific finding. Possible atelectasis. Infection and aspiration cannot be excluded. 3. Complex fat containing ventral hernia, stable since 06/06/2021. 4. Incidental findings above.
--- NOTE | 2025-02-13 18:36 | W.ED.BACK ---
HPI - Back Pain/Injury General: Chief Complaint: Back Pain/Injury Stated Complaint: low back back, trouble urinating Time Seen by Provider: 02/13/25 18:30 Source: patient Mode of arrival: ambulatory Limitations: no limitations History of Present Illness: 64-year-old female states that she had having some right-sided flank pain this afternoon. States it is a very sharp pain originally 9 out of 10 states the pain was severe and felt she is get a pass out. States since then she had taken some ibuprofen her pains improved currently 2 out of 10. She denies any vomiting or diarrhea denies any fevers. Denies any chest pain. Related Data Home Medications ?Medication ?Instructions ?Recorded ?Confirmed Bulgarian ginseng extract 350 mg mg PO 10/11/24 11/11/24 capsule acetaminophen 500 mg capsule 500 mg PO Q6H PRN 10/11/24 11/11/24 magnesium oxide 500 mg capsule 500 mg PO DAILY 10/11/24 11/11/24 methionine 500 mg capsule mg PO 10/11/24 11/11/24 multivitamin 1 tab PO DAILY 10/11/24 11/11/24 omega-3 fatty acids 1,250 mg 1,250 mg PO DAILY 10/11/24 11/11/24 capsule Previous Rx's ?Medication ?Instructions ?Recorded colestipol 1 gram tablet 2 g (2 x 1 gram) PO DAILY #60 tabs 10/17/24 doxycycline hyclate 100 mg tablet 100 mg PO BID 7 days #14 tabs 02/13/25 Allergies Allergy/AdvReac Type Severity Reaction Status Date / Time adhesive tape Allergy ALGY-Rash Verified 02/13/25 15:49 Androgenic Anabolic Steroid Allergy Unknown Verified 02/13/25 15:49 latex Allergy ALGY-Rash Verified 02/13/25 15:49 niacin Allergy hives Verified 02/13/25 15:49 PFS ED PFSH: Medical History BMI 38.0-38.9,adult Melisa sign present in right knee Primary osteoarthritis of right knee Right medial knee pain Varicose veins of both lower extremities Superficial thrombophlebitis Chronic hoarseness Ventral hernia Sacroiliac joint pain Chronic left shoulder pain Hypertension, essential, benign Anxiety and depression GERD (gastroesophageal reflux disease) Well adult exam Allergic rhinitis due to allergen Hernia, hiatal Dyslipidemia (high LDL; low HDL) Mass of soft tissue of abdomen Thoracic outlet syndrome Left carpal tunnel syndrome 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 [place] [employer] airway enlargement History of carpal tunnel surgery of right wrist 1993 Internal impingement of right shoulder 2003 [place], [place] Tear of medial meniscus of right knee 09/14/2019 Right medial meniscectomy Family History Mother Lymphoid leukemia Diabetes Hypertension Father , Age 73 CAD (coronary artery disease) Myocardial infarction Stroke Hypertension Sister Hypertension Brother Hypertension Social History Smoking and tobacco/nicotine status: never used tobacco/nicotine Alcohol intake: never Substance/Drug Use: never Household members: spouse Marital status: Current occupational status: employed Current occupation: Caregiver [employer] Vital Signs: Vital signs: Vital Signs Temperature 97.9 F 02/13/25 15:46 Pulse Rate 65 02/13/25 19:46 Respiratory Rate 16 02/13/25 19:46 Blood Pressure 124/68 02/13/25 19:46 Pulse Oximetry 98 02/13/25 19:46 Oxygen Delivery Me thod Room Air 02/13/25 19:46 MDM - Back Pain/Injury Medical Decision Making Patient presents here with right flank pain and some right lower chest pain states he is also had a cough CT does show slight pneumonia she is not hypoxic we will start her on doxycycline she stable for discharge follow-up with PCP return if worsening. Medical Records I reviewed the patient's medical records. Labs I reviewed the patient's lab results. 02/13/25 16:15 02/13/25 16:15 Radiology Impressions Abdomen/Pelvis CT 02/13/25 18:35 IMPRESSION: 1. No obstructive uropathy. No stones. 2. Subpleural opacity in the posteroinferior right lower lobe. Nonspecific finding. Possible atelectasis. Infection and aspiration cannot be excluded. 3. Complex fat containing ventral hernia, stable since 06/06/2021. 4. Incidental findings above. Laboratory Results WBC 9.76 10^3/uL (3.29-11.43) 02/13/25 16:15 RBC 4.68 10^6/uL (3.85-5.65) 02/13/25 16:15 Hgb 14.30 g/dL (11.27-16.99) 02/13/25 16:15 Hct 41.6 % (36-47) 02/13/25 16:15 MCV 88.9 fl (85-98) 02/13/25 16:15 MCH 30.6 pg (27-33) 02/13/25 16:15 MCHC 34.4 g/dL (30-55) 02/13/25 16:15 RDW 13.5 % (12.1-15.1) 02/13/25 16:15 Plt Count 215 10^3/cmm (157-399) 02/13/25 16:15 MPV 9.7 fL (7.4-10.4) 02/13/25 16:15 Neut % (Auto) 76.1 % 02/13/25 16:15 Lymph % (Auto) 15.8 % 02/13/25 16:15 [place] % (Auto) 7.0 % 02/13/25 16:15 Eos % (Auto) 0.5 % 02/13/25 16:15 Baso % (Auto) 0.3 % 02/13/25 16:15 Neut # (Auto) 7.43 10^3/uL (1.8-7.7) 02/13/25 16:15 Lymph # (Auto) 1.5 10^3/uL (0.8-4.8) 02/13/25 16:15 [place] # (Auto) 0.7 10^3/uL (0.2-0.9) 02/13/25 16:15 Eos # (Auto) 0.1 10^3/uL (0.0-0.8) 02/13/25 16:15 Baso # (Auto) 0.0 10^3/uL (0.0-0.1) 02/13/25 16:15 Nucleated RBC % (auto) 0 % 02/13/25 16:15 Nucleated RBCs # 0.0 /100WBC 02/13/25 16:15 Sodium 138 mmol/L (136-145) 02/13/25 16:15 Potassium 3.8 mmol/L (3.5-5.1) 02/13/25 16:15 Chloride 99 mmol/L (98-107) 02/13/25 16:15 Carbon Dioxide 22 mmol/L (22-29) 02/13/25 16:15 Anion Gap 20.8 (5-19) H 02/13/25 16:15 BUN 14 mg/dL (8-23) 02/13/25 16:15 Creatinine 0.7 mg/dL (0.5-0.9) 02/13/25 16:15 GFR Calculation 83.7 mL/min (90-130) L 02/13/25 16:15 Glucose 157 mg/dL (65-115) H 02/13/25 16:15 Calculated Osmolality 290 mOsm/kg (285-295) 02/13/25 16:15 Calcium 9.7 mg/dL (8.5-10.5) 02/13/25 16:15 Total Bilirubin 0.4 mg/dL (0.15-1.2) 02/13/25 16:15 AST 15 U/L (0-32) 02/13/25 16:15 ALT 16 U/L (0-33) 02/13/25 16:15 Alkaline Phosphatase 75 U/L (35-105) 02/13/25 16:15 Total Protein 7.1 g/dL (6.6-8.7) 02/13/25 16:15 Albumin 3.9 g/dL (3.5-5.2) 02/13/25 16:15 Globulin 3.2 g/dL (1.3-4.6) 02/13/25 16:15 Lipase 30 U/L (13-60) 02/13/25 16:15 Urine Color Yellow (Yellow) 02/13/25 18:33 Urine Appearance Clear (CLEAR) 02/13/25 18:33 Urine pH 5.0 (5-7) 02/13/25 18:33 Ur Specific [place] 1.014 (1.005-1.030) 02/13/25 18:33 Urine Protein Negative (Negative) 02/13/25 18:33 Urine Glucose (UA) Negative (Normal) 02/13/25 18:33 Urine Ketones Negative (Negative) 02/13/25 18:33 Urine Blood Negative (Negative) 02/13/25 18:33 Urine Nitrate Negative (Negative) 02/13/25 18:33 Urine Bilirubin Negative (Negative) 02/13/25 18:33 Urine Urobilinogen 0.2 mg/dL (Negative) 02/13/25 18:33 Ur Leukocyte Esterase Trace (Negative) A 02/13/25 18:33 Urine RBC 0-2 /hpf (0-2) 02/13/25 18:33 Urine WBC 0-5 /hpf (0-5) 02/13/25 18:33 Ur Squamous Epith Cells 0-5 /hpf (0-5) 02/13/25 18:33 Amorphous Sediment Not Reportable 02/13/25 18:33 Urine Bacteria None seen /hpf (NONE) 02/13/25 18:33 Hyaline Casts 1.21 /lpf 02/13/25 18:33 All radiology interpretation(s) finalized by discharge Discharge Plan Discharge Patient Disposition: Home Clinical Impression: Pneumonia Qualifiers: Laterality: right Lung location: lower lobe of lung Condition: Stable Prescriptions: New doxycycline hyclate 100 mg tablet 100 mg PO BID 7 Days Qty: 14 0RF No Action methionine 500 mg capsule PO acetaminophen 500 mg capsule 500 mg PO Q6H PRN multivitamin Tablet 1 tab PO DAILY omega-3 fatty acids 1,250 mg capsule 1,250 mg PO DAILY Bulgarian ginseng extract 350 mg capsule PO magnesium oxide 500 mg capsule 500 mg PO DAILY colestipol 1 gram tablet 2 g PO DAILY Qty: 60 3RF Discharge Orders: Discharge ED (Routine); Ordered 02/13/25 Ordered By: Carmelita Green Referrals: Darryl Sommer MD [Primary Care Provider, [facility]] - 4-7 days Discharge Diet: Advance as tolerated Discharge Activity: Resume usual activity Patient Instructions: Bacterial Pneumonia (ED) Print Language: Malagasy Coding Level of Care Code ED Graphic Design Intern for Twan Mcpherson
[2025-02-13 18:41] VITALS: BP 136/59; PULSE 75; RESP 16; O2SAT 97
--- NOTE | 2025-02-13 18:45 | ECG_ITS ---
[facility] Test Date: 2025-02-13 Pat Name: Ashley Kline Department: Room: Gender: Female Inside Sales Associate: : 1960 Requested By: Carmelita Green Order Number: [id number] Kristofer MD: Girish Potts M.D. Measurements Intervals [place] Rate: 67 P: -13 ID: [id number] QRS: -17 QRSD: 80 T: -17 QT: 390 QTc: 413 Interpretive Statements SINUS RHYTHM LOW QRS VOLTAGE [QRS DEFLECTION < 0.5/1.0 mV IN LIMB/CHEST LEADS] POSSIBLE ANTERIOR MYOCARDIAL INFARCTION , PROBABLY OLD [30 ms Q WAVE IN V3/V4, OR R < 0.2 mV IN V4] Compared to ECG 10/31/2022 00:30:59 Low QRS voltage now present Myocardial infarct finding now present Electronically Signed On 02-14-2025 08:18:03 CDT by Girish Potts M.D. [email or web address]
[2025-02-13 18:48] LABS: Glucose Urine UA Negative (Normal); Nitrate Urine Negative (Negative); Specific Gravity, Urine 1.014 (1.005-1.030)
[2025-02-13 18:52] LABS: Add Urine Microscopic? YES
[2025-02-13 19:46] VITALS: BP 124/68; PULSE 65; RESP 16; O2SAT 98
[2025-02-13 21:25] VITALS: BP 163/88; PULSE 78; RESP 16; O2SAT 98
== END 2025-02-13 21:26 | disposition home or self-care (01) ==
PROVIDERS: Emergency Provider Emergency Medicine; PCP Family Medicine
DX: J18.9 Pneumonia, unspecified organism (principal); E78.5 Hyperlipidemia, unspecified; I10 Essential (primary) hypertension
CPT/HCPCS: 36415; 74176; 80053; 81001; 83690; 85025; 93005; 96372; 96374; 99285; J1100; J1885

== ENCOUNTER → 2025-05-02 10:13 | Outpatient (BNVA) | payer MEDICARE, OTHER, SELFPAY | PROVIDERS: PCP Family Medicine; Visit Provider Nurse Practitioner Family | DX: L21.8 Other seborrheic dermatitis (principal); D17.21 Benign lipomatous neoplasm of skin and subcutaneous tissue of right arm; D17.1 Benign lipomatous neoplasm of skin and subcutaneous tissue of trunk; D17.23 Benign lipomatous neoplasm of skin and subcutaneous tissue of right leg; R20.9 Unspecified disturbances of skin sensation; R20.8 Other disturbances of skin sensation; L82.1 Other seborrheic keratosis; D18.01 Hemangioma of skin and subcutaneous tissue; Z08 Encounter for follow-up examination after completed treatment for malignant neoplasm; Z85.828 Personal history of other malignant neoplasm of skin | CPT/HCPCS: 99214 ==

== ENCOUNTER → 2025-06-30 09:10 | Outpatient (BNVA) | payer MEDICARE, OTHER, SELFPAY | PROVIDERS: PCP Family Medicine; Visit Provider Nurse Practitioner | DX: M17.11 Unilateral primary osteoarthritis, right knee (principal); Z68.38 Body mass index [BMI] 38.0-38.9, adult | CPT/HCPCS: 99213 ==

== ENCOUNTER → 2025-08-01 17:10 | Outpatient (BNVA) | payer MEDICARE, OTHER, SELFPAY | PROVIDERS: PCP Family Medicine | DX: R05.9 Cough, unspecified (principal) | CPT/HCPCS: 87400; 87426 ==